=== PATIENT | male | born 1950 | race Caucasian/White ===

== ENCOUNTER 2019-08-06 06:51 | Outpatient (CLI) | payer MEDICARE, SELFPAY ==
[2019-08-06 17:06] LABS: SARS-CoV-2 RNA PCR Negative
== END 2019-08-06 06:52 | disposition home or self-care (01) ==
LOC: ANHCOVIDDT 06:53
PROVIDERS: PCP Internal Medicine; Visit Provider Internal Medicine Gastroenterology
DX: Z20.828 Contact with and (suspected) exposure to other viral communicable diseases (principal)
CPT/HCPCS: 87635; C9803; U0003

== ENCOUNTER 2019-08-09 01:34 | Day surgery (SDC) | payer MEDICARE, SELFPAY ==
[2019-08-03 14:07] VITALS: BMI 42.4
[2019-08-09 08:06] VITALS: BP 132/73; PULSE 59; RESP 18; TEMP 36.2; O2SAT 97
--- NOTE | 2019-08-09 08:12 | WPDANESEPPF ---
Anes - Initial Pre Proc Eval Procedure: Operation Date: 08/09/19 09:00 Proposed Procedures p Screening Colonoscopy - Heron Barber MD Date/Time: 08/09/19 08:12 Surgeon: Heron Barber MD Pre Op Diagnosis: Neoplasm Screening Patient Data Age: 69 Gender: M Height: 5 ft 11 in Weight: 135.9 kg Last Vital Signs Temp 36.2 C L 08/09/19 08:06 Pulse 59 L 08/09/19 08:06 Resp 18 08/09/19 08:06 BP 132/73 08/09/19 08:06 Pulse Ox 97 08/09/19 08:06 Allergies Allergy/AdvReac Type Severity Reaction Status Date / Time naproxen Allergy Unknown Gastrointestinal Verified 08/03/19 13:34 Upset NSAIDS (Non-Steroidal Allergy Unknown Gastric Verified 08/03/19 13:34 Anti-Inflamma bleed Home Medications Medication Instructions Recorded Confirmed Type buspirone 10 mg tablet 10 mg PO TID #270 tablet 04/21/19 08/03/19 Rx hydrocodone 7.5 mg-acetaminophen 1 tablet PO TID PRN tablet 04/21/19 08/03/19 History 325 mg tablet tamsulosin 0.4 mg capsule 0.4 mg PO DAILY 04/21/19 08/03/19 History trazodone 50 mg tablet See Rx Instructions PO .COMPLEX 07/09/19 08/03/19 Rx #180 tablet bupropion HCl 150 mg 24 hr tablet, 150 mg PO BID #180 tablet 07/26/19 08/03/19 Rx extended release lisinopril 20 1 tablet PO DAILY #90 tablet 07/26/19 08/03/19 Rx mg-hydrochlorothiazide 12.5 mg tablet Patient hx anesthesia problems: none Family hx anesthesia problems: none PMFSH Past Medical History Medical History Cholecystectomy planned Surgical History Surgical History H/O hernia repair Family History Family History Father Cerebrovascular accident Sibling Family history of diabetes mellitus in first degree relative Mother Family history of coronary artery disease Acute myocardial infarction Cerebrovascular accident Other Diabetes mellitus Family history of malignant neoplasm Hypertension Social History Social History Smoking status: Never smoker Alcohol intake: never Gender identity (if verbalized by the patient): Male Anes - Eval Final PreProcedure Day of Procedure 08/09/19 08:12 Patient weight: morbidly obese Heart: regular rate and rhythm Lungs: clear to auscultation Airway: Mallampati scale class II, special considerations and other (difficult intubation) Neurological: alert and oriented Last oral intake: >/= 8 hours ASA classification: III Emergent: no Anesthetic plan: proceed Anesthesia type and monitoring: general GIVS and standard monitoring Informed Consent: The patient's anesthetic plan and its attendant risks and benefits were discussed with the patient/family/POA. Questions were solicited and answers provided to the satisfaction of the patient/family/POA.
[2019-08-09] MEDS: LACTATED RINGERS 1,000 ML 150 ML IV CONT (08:21)
--- NOTE | 2019-08-09 08:37 | WPDGICN ---
Assessment and Plan Assessment and plan (1) Encounter for screening for colorectal malignant neoplasm: Code(s): Z12.11 - Encounter for screening for malignant neoplasm of colon; Z12.12 - Encounter for screening for malignant neoplasm of rectum Status: Acute Assessment and Plan: Screening colonoscopy will be performed is been 12 years since last exam. High-fiber diet is advised. (2) Morbid obesity: Code(s): E66.01 - Morbid (severe) obesity due to excess calories Status: Acute GI Consult Note Consult date/time: 08/09/19 08:37 HPI: Armando Diaz is a 69 year old male Seen in evaluation at the request of Dr. Randal Piper, . Patient presents for screening colonoscopy. His current weight appetite bowel movements are normal. He denies abdominal pain. His bowel habits are normal. Last colonoscopy was 12 years ago. Family history is noncontributory. Review of Systems Review of Systems: All systems reviewed & are unremarkable except as noted in HPI and below PMFSH Past Medical History Medical History Cholecystectomy planned Surgical History Surgical History H/O hernia repair Family History Family History Father Cerebrovascular accident Sibling Family history of diabetes mellitus in first degree relative Mother Family history of coronary artery disease Acute myocardial infarction Cerebrovascular accident Other Diabetes mellitus Family history of malignant neoplasm Hypertension Social History Social History Smoking status: Never smoker Alcohol intake: never Gender identity (if verbalized by the patient): Male Meds Home Medications and Allergies Home Medications Medication Instructions Recorded Confirmed Type buspirone 10 mg tablet 10 mg PO TID #270 tablet 04/21/19 08/03/19 Rx hydrocodone 7.5 mg-acetaminophen 1 tablet PO TID PRN tablet 04/21/19 08/03/19 History 325 mg tablet tamsulosin 0.4 mg capsule 0.4 mg PO DAILY 04/21/19 08/03/19 History trazodone 50 mg tablet See Rx Instructions PO .COMPLEX 07/09/19 08/03/19 Rx #180 tablet bupropion HCl 150 mg 24 hr tablet, 150 mg PO BID #180 tablet 07/26/19 08/03/19 Rx extended release lisinopril 20 1 tablet PO DAILY #90 tablet 07/26/19 08/03/19 Rx mg-hydrochlorothiazide 12.5 mg tablet Allergies Allergy/AdvReac Type Severity Reaction Status Date / Time naproxen Allergy Unknown Gastrointestinal Verified 08/03/19 13:34 Upset NSAIDS (Non-Steroidal Allergy Unknown Gastric Verified 08/03/19 13:34 Anti-Inflamma bleed Vital Signs Vital Signs - 24 hr 08/09/19 08:06 Temperature 36.2 C L Pulse Rate 59 L Respiratory Rate 18 Blood Pressure 132/73 Pulse Oximetry 97 Exam Narrative: Exam Narrative: Physical exam reveals patient to be alert. Vital signs are stable. HEENT exam unremarkable. Lungs are clear to auscultation and percussion. Heart is without murmur or extra sounds. Abdominal exam bowel sounds are present soft nontender with no organomegaly. Patient is somewhat obese. Digital external rectal exam normal.
[2019-08-09 09:05] VITALS: BP 114/74; PULSE 64; RESP 20; O2SAT 100
[2019-08-09 09:15] VITALS: BP 118/79; PULSE 62; RESP 20; O2SAT 97
[2019-08-09 09:25] VITALS: BP 118/71; PULSE 53; RESP 18; O2SAT 97
== END 2019-08-09 10:00 | disposition home or self-care (01) ==
PROVIDERS: PCP Internal Medicine; Visit Provider Internal Medicine Gastroenterology
PROC: 0DJD8ZZ Inspection of Lower Intestinal Tract, Via Natural or Artificial Opening Endoscopic (ICD-10-PCS; CPT 45378; principal; 2019-08-09 09:00)
DX: Z12.11 Encounter for screening for malignant neoplasm of colon (principal); E66.01 Morbid (severe) obesity due to excess calories; D12.4 Benign neoplasm of descending colon; D12.5 Benign neoplasm of sigmoid colon; Z68.41 Body mass index [BMI] 40.0-44.9, adult
CPT/HCPCS: 45385; 88305; J2001; J2704; J7120

== ENCOUNTER → 2022-04-12 11:26 | Outpatient (CLI) | payer MEDICARE, SELFPAY ==
--- NOTE | ~2022-04-12 | XR_ITS ---
Supine and upright views of the abdomen Clinical history: Renal stone COMPARISON: 02/10/2019 Findings: Bowel gas pattern is nonspecific. No evidence for obstruction or free air. Bilateral renal stones are noted, essentially stable from prior exam. Osseous structures are intact. Impression: Stable bilateral renal stones. Reviewed, dictated and finalized at [facility]. [facility] Impression: Stable bilateral renal stones.
== END ==
PROVIDERS: PCP Internal Medicine; Visit Provider Urology
DX: N20.0 Calculus of kidney (principal)
CPT/HCPCS: 74018

== ENCOUNTER 2022-08-26 07:59 | Outpatient (CLI) | payer MEDICARE, SELFPAY ==
--- NOTE | ~2022-08-26 | US_ITS ---
. EXAMINATION: US art doppler w press LE BI DATE: 08/26/2022 09:53 INDICATION: Peripheral vascular disease, unspecified. TECHNIQUE: Segmental pressures and plethysmographic and Doppler waveforms of the brachial and lower e xtremity arteries were obtained. COMPARISON: None. FINDINGS: Right and left brachial artery pressures of 144 mm Hg and 131 mm Hg, respectively, are concordant (no rmal difference <= 30 mmHg). The right thigh, below knee, and ankle pressures could not be measured due to inability to cuff-inclu de the arteries. The right ankle-brachial index (MINOO) could not be measured (normal >= 0.9-1.0). The right great toe-brachial index (TBI) is 0.51 (normal >= 0.65). Arterial Doppler waveforms are biphas ic in common femoral artery, monophasic in superficial femoral artery, biphasic in popliteal artery a nd posterior tibial artery, and monophasic in dorsalis pedis. The left thigh and below-knee pressures could not be measured due to inability to cuff occlude the ar teries. The left MINOO is 1.29. The left TBI is 0.64. Arterial Doppler waveforms are triphasic in commo n femoral artery and biphasic from superficial femoral artery to the ankle. IMPRESSION: 1. Decreased bilateral TBIs, nondiagnostic right MINOO, and normal left MINOO, consistent with arterial o cclusive disease. Note that MINOO may be overestimated if arteries are calcified. Reviewed, dictated and finalized at location A. IMPRESSION: 1. Decreased bilateral TBIs, nondiagnostic right MINOO, and normal left MINOO, cons istent with arterial occlusive disease. Note that MINOO may be overestimated if a rteries are calcified.
== END 2022-08-26 08:00 | disposition home or self-care (01) ==
PROVIDERS: PCP Family Medicine; Visit Provider Family Medicine
DX: I73.9 Peripheral vascular disease, unspecified (principal)
CPT/HCPCS: 93923

== ENCOUNTER 2022-10-01 07:57 | Outpatient (CLI) | payer MEDICARE, SELFPAY ==
--- NOTE | 2022-10-01 11:30 | NEURO_ITS ---
Impression: # Complains of numbness of feet and gait dysfunction. 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 # Needle/EMG revealed decreased motor unit potentials but no fibs or myotonia. Nerve Conduction Studies Anti Sensory Summary Table Stim Site NR Peak (ms) P-T Amp (?V) Site1 Site2 Delta-P (ms) Dist (cm) Yasri (m/s) Left Sup Fibular Anti Sensory (Ant Lat Mall) NO RESPONSE 14 cm NR 14 cm Ant Lat Mall 16.0 Right Sup Fibular Anti Sensory (Ant Lat Mall) NO RESPONSE 14 cm NR 14 cm Ant Lat Mall 16.0 1.4 37.5 Left Sural Anti Sensory (Lat Mall) NO RESPONSE Calf NR Calf Lat Mall 16.0 Right Sural Anti Sensory (Lat Mall) NO RESPONSE Calf NR Calf Lat Mall 16.0 Motor Summary Table Stim Site NR Onset (ms) O-P Amp (mV) Site1 Site2 Delta-0 (ms) Dist (cm) Yasir (m/s) Left Peroneal Motor (Vastus Med) Ankle 4.6 0.8 Popit Ankle 8.7 39.0 45 Popit 13.3 0.3 Right Peroneal Motor (Vastus Med) NO RESPONSE Ankle NR Popit NR Left Tibial Motor (Abd Villalta Brev) NO RESPONSE Ankle NR Knee Ankle 40.0 Knee NR Right Tibial Motor (Abd Villalta Brev) NO RESPONSE Ankle NR Knee NR F Wave Studies NR F-Lat (ms) L-R F-Lat (ms) Left Peroneal (Mrkrs) (EDB) 53.45 3.16 Right Peroneal (Mrkrs) (EDB) 56.61 3.16 Left Tibial (Mrkrs) (Abd Hallucis) DISPERSED RESPONSE NR Right Tibial (Mrkrs) (Abd Hallucis) NO RESPONSE NR EMG Side Muscle Nerve Root Ins Act Fibs Amp Dur Recrt Comment Right AntTibialis Dp Br Fibular L4-5 Nml Nml Nml Nml Reduced Right Gastroc Tibial S1-2 Nml Nml Nml Nml Reduced Right Fibularis Long Sup Br Fibular L5-S1 Nml Nml Nml Nml Reduced Right Flex Dig Long Tibial L5-S2 Nml Nml Nml Nml Reduced Right Ext Dig Brev Dp Br Fibular L5, S1 Nml Nml Nml Nml Reduced Left AntTibialis Dp Br Fibular L4-5 Nml Nml Nml Nml Reduced Left Gastroc Tibial S1-2 Nml Nml Nml Nml Reduced Left Fibularis Long Sup Br Fibular L5-S1 Nml Nml Nml Nml Reduced Left Flex Dig Long Tibial L5-S2 Nml Nml Nml Nml Reduced Left Ext Dig Brev Dp Br Fibular L5, S1 Nml Nml Nml Nml Reduced MTDD
== END 2022-10-01 07:58 | disposition home or self-care (01) ==
LOC: ANHNEURO 07:58
PROVIDERS: PCP Family Medicine; Visit Provider Family Medicine
DX: G62.9 Polyneuropathy, unspecified (principal)
CPT/HCPCS: 95886; 95910

== ENCOUNTER 2023-07-14 09:05 | Outpatient (CLI) | payer MEDICARE, SELFPAY ==
--- NOTE | ~2023-07-14 | XR_ITS ---
EXAMINATION: XR ankle RT min 3V DATE: 07/14/2023 09:20 INDICATION: Right ankle pain. TECHNIQUE: 4 views of right ankle were obtained. COMPARISON: None. FINDINGS: Pes planus is noted. No fracture. There is mild midfoot osteoarthritis. There are enthesoph ytes at the posterior and plantar aspects of calcaneal tuberosity. Vascular calcifications are noted. There is subcutaneous edema of the lower leg and ankle. IMPRESSION: 1. Mild midfoot osteoarthritis. 2. Pes planus. Reviewed, dictated and finalized at location E.
== END 2023-07-14 09:06 ==
PROVIDERS: PCP Family Medicine; Visit Provider Family Medicine
DX: M19.071 Primary osteoarthritis, right ankle and foot (principal)
CPT/HCPCS: 73610

== ENCOUNTER 2023-09-01 13:06 | Outpatient (CLI) | payer MEDICARE, SELFPAY ==
--- NOTE | ~2023-09-01 | XR_ITS ---
Supine and upright views of the abdomen Clinical history: Bladder stone COMPARISON: 04/12/2022 Findings: Bowel gas pattern is nonspecific. No evidence for obstruction or free air. Pelvic calcifica tions suggest pelvic phleboliths, and are similar in appearance to prior exam, or bladder stone is di fficult to completely exclude. Evidence of prior herniorrhaphy, unchanged. There are probable bilater al renal stones, similar to prior exam. Osseous structures are intact. Impression: Bilateral renal stones, probably similar to prior exam. Probable calcified pelvic phleboliths, though bladder stone is difficult to completely excluded. Reviewed, dictated and finalized at [facility]. Impression: Bilateral renal stones, probably similar to prior exam. Probable calcified pelvic phleboliths, though bladder stone is difficult to com pletely excluded.
== END 2023-09-01 13:07 | disposition home or self-care (01) ==
PROVIDERS: PCP Family Medicine; Visit Provider Urology
DX: N21.0 Calculus in bladder (principal); N20.0 Calculus of kidney
CPT/HCPCS: 74018

== ENCOUNTER 2023-09-29 09:09 | Outpatient (CLI) | payer MEDICARE, SELFPAY ==
--- NOTE | 2023-09-29 09:28 | ECG_ITS ---
Test Date: 2023-09-29 09:36:16 Measurements Intervals [place] Rate: 38 P: -78 [place]: 265 QRS: -33 QRSD: 173 T: -14 QT: 445 QTc: 357 Interpretive Statements SLOW SINUS BRADYCARDIA WITH FIRST DEGREE AV BLOCK ATRIAL PREMATURE COMPLEX LEFT AXIS DEVIATION RIGHT BUNDLE BRANCH BLOCK ABNORMAL ECG No previous ECG available for comparison Electronically Signed On 09-29-2023 10:08:38 CDT by Long Razo D.O.
== END 2023-09-29 09:10 | disposition home or self-care (01) ==
LOC: ANHSURGERY 09:14
PROVIDERS: PCP Family Medicine; Visit Provider Urology
DX: I10 Essential (primary) hypertension (principal); Z01.818 Encounter for other preprocedural examination; I44.0 Atrioventricular block, first degree
CPT/HCPCS: 93005

== ENCOUNTER 2023-10-02 02:21 | Day surgery (SDC) | payer MEDICARE, SELFPAY ==
[2023-09-26 14:46] VITALS: BMI 44.7
--- NOTE | 2023-09-26 14:47 | PC.NURSE ---
Report to the Outpatient Waiting Room, entrance under the green pavilion located off [facility], at time _0630_ on date _[id number]_. Planned Procedure Time: _0830_. Time changes happen often and if your time is changed the preop area will call you the afternoon before. - You and your visitor will be asked to self-screen and do not enter if you have any COVID symptoms. - A mask is optional within the hospital at this time. Patients may have clear liquids (water, carbonated beverages, clear teas, apple juice) until 3 hours prior to surgery with a maximum of 20 ounces. - No food from midnight until time of surgery Take the following medications with a SIP of water the morning of surgery: ____Buspirone and Escitalopram DO NOT STOP ANY OF YOUR OTHER PRESCRIPTION MEDICATIONS PRIOR TO SURGERY ?EXCEPT THE FOLLOWING Medications to discontinue per physician ___Multivitamin Wan says he stopped Eliquis 09-25-2023 per instructions of heart dr. Date to take last [id number] Please no make-up, nail lao, hairspray, perfume, deodorant, or body powder the day of surgery. No jewelry (including any body piercings) or valuables the day of surgery, leave them at home. Please take a shower or bath the night before, or the morning of, surgery with an antibacterial soap. Wear comfortable, loose fitting clothing. - Jewelry must be removed prior to entering the operating room. Rings and piercings that are not removed may be cut off. - The hospital will not accept responsibility for valuables. - Please leave all valuables, including medications, at home the day of surgery. If you are going home after surgery, a licensed team cdl driver must drive you home. - NO public transportation without another adult if you receive anesthesia. - We recommend that an adult stay with you for 24 hours following discharge. - We also recommend that you do not drive, make important decision, drink alcoholic beverages, or take any drugs that were not prescribed by your health care provider for at least 24 hours after your discharge time. Follow any additional instructions given to you from your surgeon. If you or anyone in your household have experienced Covid symptoms in the past week, please notify your surgeon or the nurse liaison at the phone number below for possible testing. Telephone instructions given to __Wan and Hallie__and asked if any additional questions and then verbalized understanding. Patient advised to call surgeon office or pre surgery nurse liaison [phone] if any additional questions.
--- NOTE | 2023-10-01 15:23 | WPDANESEPPF ---
Anes - Initial Pre Proc Eval Procedure: Operation Date: 10/02/23 08:30 Proposed Procedures p Cystoscopy, Laser Lithotripsy of Bladder Stones - Nehemias Hebert MD Date/Time: 10/01/23 15:23 Surgeon: Nehemias Hebert MD Pre Op Diagnosis: bladder stones Patient Data Age: 73 Gender: M Height: 1.8 m Weight: 145.5 kg Allergies Allergy/AdvReac Type Severity Reaction Status Date / Time naproxen Allergy Unknown Gastrointestinal Verified 09/26/23 14:37 Upset NSAIDS (Non-Steroidal Allergy Unknown Gastric Verified 09/26/23 14:37 Anti-Inflamma bleed Home Medications Medication Instructions Recorded Confirmed Type hydrocodone 7.5 mg-acetaminophen 1 tablet PO TID PRN Pain 04/21/19 09/26/23 History 325 mg tablet apixaban 5 mg tablet (Eliquis) 5 mg PO BID 01/27/20 09/26/23 History finasteride 5 mg tablet 5 mg PO DAILY 08/21/22 09/26/23 History metformin 500 mg tablet 500 mg PO DAILY #90 tabs 01/15/23 09/26/23 Rx trazodone 50 mg tablet See Rx Instructions .Route 04/01/23 09/26/23 Rx .COMPLEX #270 tabs syringe with needle 3 mL 23 gauge #14 ea 06/26/23 09/26/23 Rx x 1 1/2 ([employer] Luer Lock Syringe with needle) lisinopril 20 See Rx Instructions .Route 07/14/23 09/26/23 Rx mg-hydrochlorothiazide 12.5 mg .COMPLEX #90 tabs tablet ferrous sulfate 325 mg (65 mg 325 mg PO DAILY #100 tabs 07/15/23 09/26/23 Rx iron) tablet testosterone cypionate 200 mg/mL 200 mg IM .every 2 weeks #10 mL 08/26/23 09/26/23 Rx intramuscular oil (Depo-Testosterone) furosemide 40 mg tablet 40 mg PO QAM #30 tabs 08/29/23 09/26/23 Rx potassium chloride 20 mEq 20 meq PO DAILY #30 tabs 08/29/23 09/26/23 Rx tablet,extended release buspirone 10 mg tablet See Rx Instructions .Route 09/17/23 09/26/23 Rx .COMPLEX #270 tabs pregabalin 75 mg capsule (Lyrica) 75 mg PO BID PRN neuropathy #60 09/17/23 09/26/23 Rx caps multivitamin 1 tablet PO DAILY 09/26/23 09/26/23 History escitalopram oxalate 20 mg tablet See Rx Instructions .Route 09/29/23 Rx .COMPLEX #90 tabs Patient hx anesthesia problems: none Family hx anesthesia problems: none Results Review: All pre-operative results and documents have been reviewed as part of the pre-operative evaluation. [facility] Past Medical History Medical History (Updated 10/01/23 @ 15:24 by Lex Weir, ) Anxiety Atrial fibrillation Cholecystectomy planned Depression Essential (primary) hypertension Morbid obesity AMINA (obstructive sleep apnea) Surgical History Surgical History H/O hernia repair Hx of gastric bypass Family History Family History Father Cerebrovascular accident Sibling Family history of diabetes mellitus in first degree relative Mother Family history of coronary artery disease Acute myocardial infarction Cerebrovascular accident Other Diabetes mellitus Family history of malignant neoplasm Hypertension Social History Social History Social History: 01/29/22 - Reports never smoker. Occasional iced slushee cocktail but hasn't had alcohol in 2 to 3 months he states. Denies marijuana or illicit substance use. Smoking status: Never smoker Second hand tobacco smoke exposure: Yes Alcohol intake: never Substance use: never Substance use type: does not use Lack of Transportation: No Lack of Food: Never True Current Housing: I Have Housing Concerned About Future Housing: No Difficulty Paying Gas/Electric Bills: No Difficulty Paying for Meds: No Currently Unemployed: No Education: High School Diploma/GED Difficulty w/ Childcare or Family Care: No Living arrangements: with family Gender identity (if verbalized by the patient): Male Spiritual care concerns: No Anes - Eval Final PreProcedure Day of Procedure 10/01/23 15:23
[2023-10-02] VITALS (7 sets, daily range): BP systolic 107–131; BP diastolic 54–74; PULSE 51–78; RESP 14–20; TEMP 36.1–36.4; O2SAT 95–98
--- NOTE | 2023-10-02 06:30 | WPDHPUPDATE1 ---
History and Physical Update Update Date/Time: 10/02/23 06:30 History and Physical has been reviewed, including an updated exam of the patient. There are NO changes in the patient's condition. Risks, benefits, and alternatives have been discussed and questions answered. Patient agrees to proceed with procedure.
[2023-10-02] MEDS: LACTATED RINGERS 1,000 ML 30 ML IV CONT (07:30)
[2023-10-02 07:32] LABS: Glucose Point of Care 87 mg/dl (65-105)
[2023-10-02] MEDS: ceFAZolin 3 GM/D5W 100 ML 100 ML IVPB (08:24)
[2023-10-02] MEDS: LIDOCAINE HCL 2% GEL UROJET 10 ML PKG MUCOUS MEM (08:35)
--- NOTE | 2023-10-02 09:14 | P.OP_ITS ---
Procedure Note - Detailed Date of Procedure 10/02/23 Pre-op Diagnosis Bladder stones Post-op Diagnosis Same Procedure Performed Cystoscopy, laser ablation and extraction bladder stones Surgeon Nehemias Hebert MD Anesthesia General Description of Procedure The patient is brought to the operative suite where he was prepped and draped in a routine sterile fashion while in the dorsal lithotomy position after the uneventful induction of a general anesthetic. A 21F rigid cystoscope was placed in his bladder. He has no urethral strictures but moderate prostatic hyperplasia. He has a small median lobe enlargement with an estimated prostatic urethral length of approximately 2.5cm. He has two bladder calculi - one measuring 2.5 cm and the other 1 cm. Using a 1000 micron holmium laser fiber laser these stones are fractured into smaller particles. The particles are evacuated using an [employer] evacuator.. The was minimal hematuria so I opted no to place a urethral catheter. The patient was taken to the recovery room having tolerated the procedure well. Drains No Packing No Pathology None sent Complications No immediate complications
[2023-10-02 09:23] LABS: Glucose Point of Care 91 mg/dl (65-105)
== END 2023-10-02 10:43 | disposition home or self-care (01) ==
PROVIDERS: PCP Family Medicine; Visit Provider Urology
PROC: 0TCB8ZZ Extirpation of Matter from Bladder, Via Natural or Artificial Opening Endoscopic (ICD-10-PCS; CPT 52352; principal; 2023-10-02 08:30)
DX: N21.0 Calculus in bladder (principal); I48.91 Unspecified atrial fibrillation; I10 Essential (primary) hypertension; G47.33 Obstructive sleep apnea (adult) (pediatric); F41.9 Anxiety disorder, unspecified; F32.A Depression, unspecified; E66.01 Morbid (severe) obesity due to excess calories; Z68.42 Body mass index [BMI] 45.0-49.9, adult; Z79.84 Long term (current) use of oral hypoglycemic drugs; Z79.890 Hormone replacement therapy; Z98.84 Bariatric surgery status
CPT/HCPCS: 52317; 82365; 82948; 88300; J0690; J1100; J2405; J2704; J3010; J7120

== ENCOUNTER 2023-11-07 12:55 | Inpatient (IN) | payer MEDICARE, SELFPAY ==
[2023-11-07] VITALS (43 sets, daily range): BP systolic 66–118; BP diastolic 42–70; PULSE 57–96; RESP 18–37; TEMP 36.6–37.2; O2SAT 90–96; BMI 45.6
--- NOTE | ~2023-11-07 | CT_ITS ---
EXAMINATION: CT chest abdomen pelvis wo con DATE: 11/07/2023 17:02 INDICATION: Sepsis. Hypotension. TECHNIQUE: Computed tomography (CT) of the chest, abdomen, and pelvis was performed without intraveno us contrast. The mA was adjusted according to patient size. Iterative reconstruction technique was em ployed. The dose-length product was 2096.25 mGy-cm. COMPARISON: CT abdomen pelvis dated 08/11/2018 FINDINGS: CHEST CT: Right internal jugular central venous catheter with distal tip at the high right atrium. Chronic elev ation the right hemidiaphragm. Partially expiratory phase of imaging with volume loss in both lungs a s well as bronchovascular crowding with motion artifact. Interval increase in thickness of the linear band of discoid atelectasis/scarring in the right lower lobe. Additional mild discoid atelectasis at the right apex. No pleural effusion or definite pulmonary edema or pneumonia. Borderline heart size. Atherosclerotic coronary artery calcification. No pericardial effusion. Thoracic aorta is normal in caliber. No pathologically enlarged thoracic lymphadenopathy. There are bridging osteophytes througho ut the thoracic spine consistent with diffuse idiopathic skeletal hyperostosis (DISH). ABDOMEN/PELVIS CT: Cholecystectomy clips the gallbladder fossa. Liver, spleen, pancreas and bilateral adrenal glands are normal. Again seen are multiple bilateral nonobstructing renal stones with at least 5 stones in the right kidney measuring up to 11 mm and 2 stones in the right kidney measuring up to 5 mm. No ureteral stones or hydronephrosis. Cristina catheter in the decompressed bladder. There is bladder wall thickeni ng along some mild stranding in the immediately adjacent fat which could be seen with cystitis. There is some fluid scattered throughout the colon consistent with diarrhea. Mild diverticulosis along the descending and sigmoid colon without adjacent inflammatory stranding to suggest diverticulitis. Smal l bowel anastomotic suture line in the anterior upper abdomen. No bowel obstruction. Normal appendix. Postoperative change of prior umbilical hernia mesh repair. No free intraperitoneal gas or fluid. No pathologically enlarged abdominal or pelvic lymphadenopathy. There are small bilateral fat-containin g inguinal hernias. Mild lumbar spondylosis with a few additional bridging osteophytes in the lumbar spine. IMPRESSION: 1. Chronic elevation the right hemidiaphragm with respiratory motion at scattered mild atelectasis in the lungs. No acute cardiopulmonary disease. 2. Bilateral nonobstructing nephrolithiasis. 3. Cristina catheter in the bladder which is decompressed with wall thickening and stranding in the surr ounding fat which raises concern for cystitis. Correlate with urinalysis. 4. Small bilateral fat-containing inguinal hernias and change of prior umbilical hernia mesh repair. Reviewed, dictated and finalized at location A. IMPRESSION: 1. Chronic elevation the right hemidiaphragm with respiratory motion at scatter ed mild atelectasis in the lungs. No acute cardiopulmonary disease. 2. Bilateral nonobstructing nephrolithiasis. 3. Cristina catheter in the bladder which is decompressed with wall thickening and stranding in the surrounding fat which raises concern for cystitis. Correlate with urinalysis. 4. Small bilateral fat-containing inguinal hernias and change of prior umbilica l hernia mesh repair.
--- NOTE | ~2023-11-07 | XR_ITS ---
XR chest 1V portable Ordering provider: Brannon Santizo MD History: 73 years Male with . Hypotension . Comparison: October 23, 2010 FINDINGS: MEDIASTINUM: The cardiac silhouette is moderately enlarged. Congestive gay. LUNGS: No pneumothorax. Opacification in the left lung base which may indicate atelectasis versus pne umonia. Minimal effusion is not excluded. Prominent markings in the right lung base. OTHER: No free air under the diaphragm. IMPRESSION: Left basal atelectasis versus pneumonia. Congestive gay with bilateral minimal interstitial changes may indicate cardiac decompensation. Clinical correlation advised. Reviewed, dictated and finalized at location A.
--- NOTE | ~2023-11-07 | XR_ITS ---
EXAMINATION: XR chest port-a-cath/central DATE: 11/07/2023 16:12 INDICATION: Central line placement TECHNIQUE: frontal view of the chest was obtained. COMPARISON: Chest radiograph dated 11/07/2023 FINDINGS: Interval placement of a dual-lumen right internal jugular central venous catheter with distal tip at the high right atrium. Decreased right lung volume with chronic elevation of the right hemidiaphragm. Opacities at the bilateral lower lung zones and favor atelectasis over pneumonia. No pleural effusio n or pneumothorax. Heart size is within normal limits for AP technique. Visualized bones and soft tis sues are unremarkable. IMPRESSION: 1. Chronic elevation of the right hemidiaphragm with opacities at the bilateral lung bases and favor atelectasis over pneumonia. Reviewed, dictated and finalized at location A.
--- NOTE | 2023-11-07 13:16 | ECG_ITS ---
Test Date: 2023-11-07 13:23:11 Measurements Intervals [place] Rate: 97 P: 183 [place]: 208 QRS: -28 QRSD: 169 T: -8 QT: 341 QTc: 434 Interpretive Statements BASELINE ARTIFACT, DIFFICULT INTERPRETATION POSSIBLE ECTOPIC ATRIAL RHYTHM BORDERLINE LEFT AXIS DEVIATION [QRS AXIS < -20] RIGHT BUNDLE BRANCH BLOCK [120+ ms QRS DURATION, UPRIGHT V1, 40+ ms S IN I/aVL/V4/V5/V6] Compared to ECG 09/29/2023 09:36:16 PATIENT IS NO LONGER BRADYCARDIC POOR QUALITY OF THE BASELINE PRECLUDES ACCURATE ATRIAL RHYTHM TO TERMINATE Electronically Signed On 11-07-2023 15:14:05 CDT by Nicanor Watt M.D.
--- NOTE | 2023-11-07 13:28 | ECG_ITS ---
Test Date: 2023-11-07 14:20:21 Measurements Intervals [place] Rate: 88 P: -75 [place]: 276 QRS: -19 QRSD: 97 T: -11 QT: 387 QTc: 469 Interpretive Statements SUSPECTSINUS RHYTHM WITH FIRST DEGREE AV BLOCK LOW QRS VOLTAGE IN PRECORDIAL LEADS [QRS DEFLECTION < 1.0 mV IN CHEST LEADS] PATTERN CONSISTENT WITH PULMONARY DISEASE RIGHT BUNDLE BRANCH BLOCK LEFTWARD AXIS ABNORMAL ECG Compared to ECG 11/07/2023 13:23:11 NO SIGNIFICANT CHANGE Electronically Signed On 11-07-2023 15:18:51 CDT by Nicanor Watt M.D.
[2023-11-07 13:34] LABS: Hematocrit 38.7 % (42.0-52.0); Hemoglobin 12.5 g/dL (14.0-18.0); Mean Corpuscular HGB Conc 32.3 g/dl (32-36); Mean Corpuscular Hemoglobin 28.7 pg (26-34); Mean Platelet Volume 10.1 fl (7.4-10.4); Platelet Count Result 172 k/mm3 (150-375); Red Blood Count 4.35 M/mm3 (4.6-6.20); Red Cell Distribution Width 17.2 % (11.5-14.5)
--- NOTE | 2023-11-07 13:34 | PC.NURSE ---
Patient's family states patient is more pale than usual. Patient states he does take blood thinner and has been having hematuria.
[2023-11-07] MEDS: SODIUM CHLORIDE 0.9% IV 3,000 ML 999 ML IV CONT (13:46)
[2023-11-07 13:50] LABS: Albumin Level 3.6 g/dL (3.5-5.1); Alkaline Phosphatase 89 U/L (38-126); Anion Gap 14 mmol/L (4-12); Aspartate Amino Transferase 40 U/L (17-59); Bilirubin,Total 1.2 mg/dL (0.2-1.3); Blood Urea Nitrogen 34 mg/dL (9-20); Calcium 8.3 mg/dL (8.4-10.2); Carbon Dioxide 24 mmol/L (22-30); Chloride 98 mmol/L (98-107); Estimated CRCL calculation 33 ml/min; Estimated Glomerular Filt Rate 24; Glucose 106 mg/dL (65-110); Potassium 3.1 mmol/L (3.4-5.0); Sodium 136 mmol/L (137-145)
[2023-11-07 13:53] LABS: Alanine Aminotransferase 26 U/L (6-50)
[2023-11-07 13:55] LABS: Band Neutrophils Percent 11 % (0-6); Lymphocytes Absolute Manual 0.56 K/mm3 (1.1-4.5); Monocytes Absolute Manual 0.42 K/mm3 (0.1-0.90); Monocytes Percent Manual 3 % (3-9); Neutrophils Absolute Manual 13.02 K/mm3 (1.3-6.7); Neutrophils Percent Manual 82 % (46-73); Total Cells Counted 100
[2023-11-07 13:56] LABS: Platelet Estimate Adequate (Adequate); Schistocytes None Seen
--- NOTE | 2023-11-07 14:06 | ED.GENADULT ---
HPI - General Adult General Chief complaint: Syncope Stated complaint: near syncopal episode while attempting a catheter Time Seen by Provider: 11/07/23 13:23 History of Present Illness HPI narrative: This is a 73-year-old male presenting ED with chief complaint of near-syncope. Patient was going to the urologist's office because he was having hematuria. At the urologist's office he was found to be hypotensive in ill-appearing and was sent to the ED for further workup. The patient says that he has been having shortness of breath with a dry cough the last several days. He has also felt very cold. He has noted blood in his urine. He is denying fevers, chest pain, abdominal pain. Related Data Home Medications Medication Instructions Recorded Confirmed hydrocodone 7.5 mg-acetaminophen 1 tablet PO TID PRN Pain 04/21/19 09/26/23 325 mg tablet apixaban 5 mg tablet (Eliquis) 5 mg PO BID 01/27/20 10/02/23 finasteride 5 mg tablet 5 mg PO DAILY 08/21/22 09/26/23 multivitamin 1 tablet PO DAILY 09/26/23 09/26/23 Allergies Allergy/AdvReac Type Severity Reaction Status Date / Time naproxen Allergy Unknown Gastrointestinal Verified 10/02/23 08:01 Upset NSAIDS (Non-Steroidal Allergy Unknown Gastric Verified 10/02/23 08:01 Anti-Inflamma bleed PMFSH Past Medical History Medical History Anxiety Atrial fibrillation Cholecystectomy planned Depression Essential (primary) hypertension Morbid obesity AMINA (obstructive sleep apnea) Surgical History Surgical History H/O hernia repair Hx of gastric bypass Family History Family History Father Cerebrovascular accident Sibling Family history of diabetes mellitus in first degree relative Mother Family history of coronary artery disease Acute myocardial infarction Cerebrovascular accident Other Diabetes mellitus Family history of malignant neoplasm Hypertension Social History Social History Social History: 01/29/22 - Reports never smoker. Occasional iced slushee cocktail but hasn't had alcohol in 2 to 3 months he states. Denies marijuana or illicit substance use. Smoking status: Never smoker Second hand tobacco smoke exposure: Yes Alcohol intake: never Substance use: never Substance use type: does not use Lack of Transportation: No Lack of Food: Never True Current Housing: I Have Housing Concerned About Future Housing: No Difficulty Paying Gas/Electric Bills: No Difficulty Paying for Meds: No Currently Unemployed: No Education: High School Diploma/GED Difficulty w/ Childcare or Family Care: No Living arrangements: with family Gender identity (if verbalized by the patient): Male Spiritual care concerns: No Exam Narrative: APPEARANCE: No apparent distress. Head: atraumatic. EYES: EOMI, NOSE: Atraumatic NECK: Trachea midline RESPIRATORY: Decreased lung sounds in the bases CARDIOVASCULAR: RRR, no peripheral edema ABDOMINAL: Non-distended soft nontender MUSCULOSKELETAl: No obvious deformities NEURO: Alert. Moving 4/4 extremities SKIN:: Pale PSYCHIATRIC: Normal affect Course Vital Signs Vital signs: Vital Signs Temperature 97.9 F 11/07/23 13:09 Pulse Rate 93 11/07/23 13:09 Respiratory Rate 20 11/07/23 13:09 Blood Pressure 66/53 L 11/07/23 13:09 Pulse Oximetry 95 11/07/23 13:09 Oxygen Delivery Room Air 11/07/23 13:09 Temperature 97.9 F 11/07/23 13:09 Pulse Rate 88 11/07/23 16:33 Respiratory Rate 21 H 11/07/23 16:16 Blood Pressure 87/42 L 11/07/23 16:33 Pulse Oximetry 95 11/07/23 16:16 Oxygen Delivery Room Air 11/07/23 13:09 Procedures Central Line Placement Right IJ: Central Line Date: 11/07/23 Discussed w/ the patient/family/POA
[2023-11-07 14:10] LABS: Fractional Inspired Oxygen 21 %; HCO3 VBG 23.1 mEq/l (24.0-30.0); PCO2 VBG 49.1 mmHg (42.0-48.0); pH VBG 7.291 (7.300-7.400)
[2023-11-07 14:12] LABS: Device ROOM AIR; PO2 VBG < 27.0 mmHg (35.0-45.0)
[2023-11-07] MEDS: POTASSIUM CHLORIDE INJ 40 MEQ in SODIUM CHLORIDE 0.9% IV 500 ML 130 MEQ IVPB (14:29)
[2023-11-07 14:45] LABS: INR 1.3; Prothrombin Time 17.1 Seconds (11.1-14.7)
[2023-11-07 14:46] LABS: Partial Thromboplastin Time 43.5 Seconds (22.3-36.8)
[2023-11-07 14:47] LABS: Lipase 42 U/L (23-300); Magnesium 1.5 mg/dL (1.6-2.3); Phosphorus 1.5 mg/dL (2.5-4.5)
[2023-11-07 15:00] LABS: Influenza A QL RT-PCR Negative (Negative); Influenza B QL RT-PCR Negative (Negative); RSV RNA, RT-PCR Negative (Negative); SARS-CoV-2 RNA PCR Negative (Negative)
[2023-11-07 15:10] LABS: NT Pro B Type Natriuretic Pept 5420 pg/mL (19.9-100); Troponin I 0.068 ng/mL (0.000-0.034)
[2023-11-07 15:40] LABS: Add Urine Microscopic? YES; Appearance Urine Turbid (Clear); Bacteria Urine 4+ /hpf; Bilirubin Urine Negative (Negative); Blood Urine 3+ (Negative); Color Urine Dark Yellow (Yellow); Glucose Urine UA Negative (Negative); Ketones Urine Trace mg/dL (Negative); Leukocyte Esterase Ur 3+ LEU/UL (Negative); Need Manual Microscopic Reviewed; Nitrate Urine Negative (Negative); Protein Urine 2+ mg/dL (Negative); RBC Urine 51-100 /hpf (0-2); Specific Grav Ur 1.013 (1.001-1.035); Squamous Epithelial Cell Urine Moderate /hpf (Few); WBC Urine >100 /hpf (0-3); pH Urine 5.5 (5.0-9.0)
[2023-11-07] MEDS: NOREPINEPHRINE 8 MG/D5W 250 ML 8 MG/250 ML BAG 18.75 MG IV CONT (16:05)
[2023-11-07] MEDS: MAGNESIUM SULF 2 GM/WATER 50ML 2 GM/50 ML BAG IVPB (16:22)
[2023-11-07] MEDS: PIPERACILLN/TAZ 3.375GM/NS50ML 3.375 GM/50 ML BAG IVPB (17:13)
[2023-11-07 17:21] LABS: Reflex Lactic Acid Yes or No Add Lactic
[2023-11-07 18:05] LABS: Troponin I 0.062 ng/mL (0.000-0.034)
[2023-11-07] MEDS: DOXYCYCLINE 100 MG/NS 100 ML 100 MG/100 ML BAG IVPB (18:24)
[2023-11-07] MEDS: SODIUM CHLORIDE 0.9% IV 1,000 ML 999 ML IV CONT (18:34)
--- NOTE | 2023-11-07 18:36 | PM.IMHP ---
H&P: HPI History of Present Illness Date/Time: 11/07/23 18:36 Chief Complaint: Hematuria, Near-Syncope Narrative: 73 y/o M presents here with syncope and hematuria with PMH of AFib, anxiety, depression, hypertension, morbid obesity, and AMINA. The patient presents here with hematuria, difficulty urinating, and near-syncope. Patient was brought to the emergency department from his urologist's office today after he had a near syncopal episode. Patient was at the office for hematuria and difficulty urinating. Difficulty urinating started on Fri (11/04) and hematuria (11/05). Patient was able to get into the office today (Fri). Patient able to urinate just before appt. During this visit they attempted to catheterize the patient for a urine sample but he became lightheaded and had near syncopal episode. Prior to visit, the patient was also having dizziness with positional changes that started 1-2 days ago. Hematuria/difficulty urinating is accompanied by weakness, dizziness, shortness of breath, chills, and fatigue. SOB occurring with mild exertion and would resolve with rest, started in the last 2 days. Upon presentation to the emergency department his initial blood pressure was 66/53 and patient was ill-appearing/pale. Improved post-fluids and initiation of pressors. Initial VS at presentation: 37.9? F, HR 93, RR 20, 66/53, and 95% on RA. ED workup showed: WBC 14.0, hemoglobin 12.5, INR 1.3, pH 7.291, sodium 136, potassium 3.1, creatinine 2.6 and GFR 24 (previously 1.2 and GFR 63 on 08/20/2023), magnesium 1.5, initial troponin 0.068, BNP 5420, UA consistent with UTI. Viral PCR negative. CXR showed chronic elevation the right hemidiaphragm with opacities at the bilateral lung bases that favor atelectasis versus pneumonia. CT of the chest/abdomen/pelvis showed chronic elevation of the right hemidiaphragm, bilateral nonobstructing nephrolithiasis, Cristina catheter in the bladder which is decompressed with wall thickening and stranding concerning for cystitis, small bilateral fat containing inguinal hernias and change of prior umbilical hernia mesh repair. Review of Systems Review of Systems: All systems reviewed & are unremarkable except as noted in HPI and below PMFSH Past Medical History Medical History Anemia, unspecified Anxiety Atrial fibrillation Benign prostatic hyperplasia with lower urinary tract symptoms Bilateral inguinal hernia, without obstruction or gangrene, not specified as recurrent Cholecystectomy planned Depression Essential (primary) hypertension History of GI bleed Secondary to gastric bypass and NSAID use Hypogonadism in male Mixed hyperlipidemia Morbid obesity Neuropathy AMINA (obstructive sleep apnea) PAD (peripheral artery disease) Prediabetes Primary insomnia Surgical History Surgical History H/O hernia repair History of arthroscopy of both knees History of bilateral carpal tunnel release History of cholecystectomy Hx of gastric bypass Family History Family History Father Cerebrovascular accident Hypertension Sibling Family history of diabetes mellitus in first degree relative Aortic aneurysm PVD (peripheral vascular disease) Mother Acute myocardial infarction Family history of coronary artery disease Cerebrovascular accident Diabetes mellitus Family history of malignant neoplasm Hypertension Social History Social History Social History: 01/29/22 - Reports never smoker. Occasional iced slushee cocktail but hasn't had alcohol in 2 to 3 months he states. Denies marijuana or illicit substance use. Smoking status: Never smoker Second hand tobacco smoke exposure: Yes Alcohol intake: current Substance use: current Substance use type: does not use Do You Feel Sa
[2023-11-07 19:00] LABS: Lactic Acid 2.3 mmol/L (0.7-2.0)
[2023-11-07] MEDS: VANCOMYCIN 1,250 MG/NS 250 ML 1,250 MG/250 ML BAG 166.67 MG IVPB ×2 (19:16→20:35)
[2023-11-07 20:28] LABS: Creatine Kinase 132 U/L (55-170)
[2023-11-07 20:35] LABS: Procalcitonin 66.2 ng/mL
[2023-11-07] MEDS: LACTATED RINGERS 1,000 ML 100 ML IV CONT (20:44)
[2023-11-07 20:46] LABS: Creatinine Urine 167.9 mg/dL; Total Protein Urine Random 180 mg/dL
[2023-11-07 20:58] LABS: Creatinine Urine 176.1 mg/dL; Total Protein Urine Random 180 mg/dL; Ur Ttl Prot Creatinine Ratio 1.02 mg/mg (0-0.20)
[2023-11-07 21:03] LABS: Sodium Urine Random 80 meq/L
[2023-11-07] MEDS: POTASSIUM/PHOSPHORUS/SODIUM 1.5 GM PACKET 1 PACKET PO (21:21)
[2023-11-07] MEDS: traZODone HCL 50 MG TABLET 150 MG PO (22:58)
[2023-11-07] MEDS: APIXABAN 5 MG TABLET PO (22:59)
[2023-11-07] MEDS: NOREPINEPHRINE 8 MG/D5W 250 ML 8 MG/250 ML BAG 26.25 MG IV CONT (23:15)
--- NOTE | 2023-11-07 23:25 | ADMGEN ---
At 1930 on 11/07/2023, this patient, Armando Diaz, was admitted to Intensive Care Unit-3. Patient/family oriented to hospital policies and general routines including ID bracelet, bed and alarms, visiting hours, pain management, procedures, bathroom and other care routines, personal items, smoking policy, room service/diet, and visiting hours. Information on how to activate the Rapid Response Team has been discussed. Patient/Family are encouraged to report perceived risks to care and to ask questions if they do not understand what they are told or what they should do.
[2023-11-07] MEDS: PIPERACILLIN/TAZ 2.25G/NS 50ML 2.25 GM/50 ML BAG IVPB (23:37)
[2023-11-08] VITALS (29 sets, daily range): BP systolic 88–132; BP diastolic 57–75; PULSE 54–79; RESP 15–25; TEMP 36.4–36.9; O2SAT 93–100
[2023-11-08 00:50] LABS: Alanine Aminotransferase 20 U/L (6-50); Albumin Level 3.2 g/dL (3.5-5.1); Alkaline Phosphatase 70 U/L (38-126); Anion Gap 12 mmol/L (4-12); Aspartate Amino Transferase 34 U/L (17-59); Bilirubin,Total 0.6 mg/dL (0.2-1.3); Blood Urea Nitrogen 33 mg/dL (9-20); Calcium 7.6 mg/dL (8.4-10.2); Carbon Dioxide 23 mmol/L (22-30); Chloride 101 mmol/L (98-107); Estimated CRCL calculation 39 ml/min; Estimated Glomerular Filt Rate 29; Glucose 166 mg/dL (65-110); Potassium 3.7 mmol/L (3.4-5.0); Sodium 136 mmol/L (137-145)
[2023-11-08] MEDS: DOXYCYCLINE 100 MG/NS 100 ML 100 MG/100 ML BAG IVPB (06:12)
[2023-11-08] MEDS: PIPERACILLIN/TAZ 2.25G/NS 50ML 2.25 GM/50 ML BAG IVPB (06:13)
[2023-11-08 06:24] LABS: Alanine Aminotransferase 19 U/L (6-50); Alkaline Phosphatase 63 U/L (38-126); Anion Gap 10 mmol/L (4-12); Aspartate Amino Transferase 33 U/L (17-59); Bilirubin,Total 0.5 mg/dL (0.2-1.3); Blood Urea Nitrogen 36 mg/dL (9-20); Calcium 7.4 mg/dL (8.4-10.2); Carbon Dioxide 23 mmol/L (22-30); Chloride 103 mmol/L (98-107); Estimated CRCL calculation 43 ml/min; Estimated Glomerular Filt Rate 33; Glucose 106 mg/dL (65-110); Hematocrit 31.9 % (42.0-52.0); Hemoglobin 10.4 g/dL (14.0-18.0); Lactic Acid Reflex 1.1 mmol/L (0.7-2.0); Magnesium 1.9 mg/dL (1.6-2.3); Mean Corpuscular HGB Conc 32.6 g/dl (32-36); Mean Corpuscular Hemoglobin 28.7 pg (26-34); Mean Corpuscular Volume 88.1 fl (80-100); Mean Platelet Volume 9.9 fl (7.4-10.4); Phosphorus 3.5 mg/dL (2.5-4.5); Platelet Count Result 151 k/mm3 (150-375); Potassium 3.5 mmol/L (3.4-5.0); Red Blood Count 3.62 M/mm3 (4.6-6.20); Red Cell Distribution Width 17.8 % (11.5-14.5); Sodium 136 mmol/L (137-145); White Blood Count 24.6 K/mm3 (4.5-10.0)
[2023-11-08 06:58] LABS: Procalcitonin 68.9 ng/mL
[2023-11-08 08:21] LABS: Band Neutrophils Percent 13 % (0-6); Lymphocytes Absolute Manual 1.23 K/mm3 (1.1-4.5); Lymphocytes Percent Manual 5 % (18-44); Monocytes Absolute Manual 0.98 K/mm3 (0.1-0.90); Monocytes Percent Manual 4 % (3-9); Neutrophils Absolute Manual 22.38 K/mm3 (1.3-6.7); Neutrophils Percent Manual 78 % (46-73); Nucleated Red Blood Cells 1 %; Platelet Estimate Adequate (Adequate); Total Cells Counted 100
[2023-11-08 08:22] LABS: Anisocytosis 1+; Ovalocytes 1+; Schistocytes None Seen
--- NOTE | 2023-11-08 08:43 | WPDCNINT ---
Assessment and Plan Assessment and plan (1) Septic shock: Code(s): A41.9 - Sepsis, unspecified organism; R65.21 - Severe sepsis with septic shock Status: Acute Assessment and Plan: patient presented with septic shock secondary to UTI blood and urine cultures have been sent and are pending patient received vancomycin doxycycline and Zosyn. I will DC doxy and hold vancomycin at this time and continue Zosyn until cultures also back. patient received IV fluid bolus and is on IV fluids which will be continued for now continue Levophed titration to maintain mean arterial pressure lactic acid has normalized (2) Acute UTI: Code(s): N39.0 - Urinary tract infection, site not specified Status: Acute Assessment and Plan: see above (3) Elevated troponin: Code(s): R79.89 - Other specified abnormal findings of blood chemistry Status: Acute Assessment and Plan: elevated troponin likely secondary to septic shock and hypotension. Patient denies any chest pain and has no ST segment elevation on EKG. He is already anticoagulated. Echo is ordered and pending (4) Acute kidney injury: Code(s): N17.9 - Acute kidney failure, unspecified Status: Acute Assessment and Plan: acute kidney injury likely sepsis and shock CT scan of abdomen does not show any obstructing stone hydronephrosis monitor urine output electrolytes and creatinine continue cautious IV fluids in light of patient's concern heart failure check CK level if kidneys to not recover will consult nephrology (5) Bilateral lower extremity edema: Code(s): R60.0 - Localized edema Status: Acute (6) Congestive heart failure: Code(s): I50.9 - Heart failure, unspecified Status: Acute Assessment and Plan: history of orthopnea PND and lower extremity swelling suggestive congestive heart failure his BNP 5 420 at this time I will continue IV fluids and cautious rate due to acute kidney injury and septic shock but eventually he will need diuretics echo is ordered and pending (7) Atrial fibrillation: Qualifiers: Atrial fibrillation type: unspecified Qualified Code(s): I48.91 - Unspecified atrial fibrillation Code(s): I48.91 - Unspecified atrial fibrillation Status: Acute Assessment and Plan: in controlled ventricular rate continue apixaban (8) Benign prostatic hyperplasia with lower urinary tract symptoms: Qualifiers: Lower urinary tract symptom detail: unspecified Qualified Code(s): N40.1 - Benign prostatic hyperplasia with lower urinary tract symptoms Code(s): N40.1 - Benign prostatic hyperplasia with lower urinary tract symptoms Status: Acute Assessment and Plan: patient seen urologist for BPH. Continue Cristina at this time consult urology (9) Hematuria: Code(s): R31.9 - Hematuria, unspecified Status: Acute Assessment and Plan: urine appears fairly clear this time hence I will continue Eliquis and monitor Plan DVT prophylaxis - Eliquis Stress ulcer prophylaxis - Protonix is ordered Nutrition - heart healthy diet ordered Code Status - Full Code Total Critical Care Time - 35 minutes Due to a high probability of clinically significant, life threatening deterioration, the patient required my highest level of preparedness to intervene emergently and I personally spent this critical care time directly and personally managing the patient. This critical care time included obtaining a history; examining the patient; pulse oximetry; ordering and review of studies; arranging urgent treatment with development of a management plan; evaluation of patient's response to treatment; frequent reassessment; and discussions with other providers. It was exclusive of separately billable procedures and treating other patients and teaching time. Please see Assessment and Plan section and the rest of the no
[2023-11-08] MEDS: LACTATED RINGERS 1,000 ML 100 ML IV CONT (10:07)
[2023-11-08] MEDS: FINASTERIDE 5 MG TABLET PO (10:08)
[2023-11-08] MEDS: APIXABAN 5 MG TABLET PO ×2 (10:08→20:26)
[2023-11-08] MEDS: PANTOPRAZOLE SODIUM IV 40 MG VIAL IV PUSH (10:08)
[2023-11-08] MEDS: PIPERACILLN/TAZ 3.375GM/NS50ML 3.375 GM/50 ML BAG IVPB ×3 (11:46→23:40)
[2023-11-08] MEDS: CENTRAL LINE FLUSH 10 ML IV PUSH ×2 (14:00→20:32)
--- NOTE | 2023-11-08 16:23 | PM.IMPN ---
Progress Note: A&P Assessment and Plan (1) Congestive heart failure: Code(s): I50.9 - Heart failure, unspecified Status: Acute (2) Benign prostatic hyperplasia with lower urinary tract symptoms: Qualifiers: Lower urinary tract symptom detail: unspecified Qualified Code(s): N40.1 - Benign prostatic hyperplasia with lower urinary tract symptoms Code(s): N40.1 - Benign prostatic hyperplasia with lower urinary tract symptoms Status: Acute (3) Acute UTI: Code(s): N39.0 - Urinary tract infection, site not specified Status: Acute (4) Septic shock: Code(s): A41.9 - Sepsis, unspecified organism; R65.21 - Severe sepsis with septic shock Status: Acute (5) Leukocytosis: Code(s): D72.829 - Elevated white blood cell count, unspecified Status: Acute (6) Acute kidney injury: Code(s): N17.9 - Acute kidney failure, unspecified Status: Acute Plan Blood pressure stable. Afebrile. Continue Zosyn. Will follow up repeat blood culture to be drawn tomorrow. KENNEDI is improving. Continue to monitor leukocytosis. Patient is improving, he can be transferred out to telemetry floor. Wishes to be full code. Continue apixaban Subjective Date/time seen: 11/08/23 16:23 Interval history: No acute overnight events. Levophed has been weaned off. Patient feels great. Review of Systems Review of Systems: All systems reviewed & are unremarkable except as noted in HPI and below (Subjective) Exam Const: General: comfortable and no acute distress Other: Morbidly obese Eyes: Pupils: Equal, round and reactive pupils present Neck: Neck: supple Other: Right IJ in place Cardio: Rate: regular rate Rhythm: regular rhythm GI: GI Palp: Yes Soft to palpation and No Tenderness to palpation present (GI) Extrem: General: edema Other: 3+ distal to the knees bilaterally Objective Data Vital Signs Vital Signs: Vital Signs - 24 hr 11/07/23 16:33 11/07/23 17:06 11/07/23 17:16 Temperature Pulse Rate 88 88 86 Respiratory Rate Blood Pressure 87/42 L 87/48 L 85/51 L Pulse Oximetry Oxygen Delivery Oxygen Flow Rate 11/07/23 17:25 11/07/23 17:38 11/07/23 17:50 Temperature Pulse Rate 88 85 81 Respiratory Rate 26 H Blood Pressure 90/53 L 75/42 L 80/43 L Pulse Oximetry 93 Oxygen Delivery Oxygen Flow Rate 11/07/23 17:01 11/07/23 17:04 11/07/23 17:36 Temperature Pulse Rate 91 90 85 Respiratory Rate 24 H 22 H 23 H Blood Pressure 87/48 L Pulse Oximetry 91 91 92 Oxygen Delivery Oxygen Flow Rate 11/07/23 17:45 11/07/23 17:46 11/07/23 17:48 Temperature Pulse Rate 82 82 83 Respiratory Rate 29 H 25 H 28 H Blood Pressure 88/51 L 80/43 L Pulse Oximetry 92 92 92 Oxygen Delivery Oxygen Flow Rate 11/07/23 18:05 11/07/23 18:06 11/07/23 18:15 Temperature Pulse Rate 83 82 81 Respiratory Rate 28 H 29 H 25 H Blood Pressure 78/51 L Pulse Oximetry 90 91 91 Oxygen Delivery Oxygen Flow Rate 11/07/23 18:16 11/07/23 18:35 11/07/23 19:51 Temperature Pulse Rate 82 87 76 Respiratory Rate 29 H 18 Blood Pressure 90/54 L 101/57 L 111/67 Pulse Oximetry 91 94 Oxygen Delivery Oxygen Flow Rate 11/07/23 20:30 11/07/23 21:00 11/07/23 20:00 Temperature 99.0 F Pulse Rate 75 66 77 Respiratory Rate 24 H Blood Pressure 116/68 112/70 111/67 Pulse Oximetry 95 Oxygen Delivery Oxygen Flow Rate 11/07/23 20:00 11/07/23 22:00 11/08/23 00:00 Temperature Pulse Rate 57 L Respiratory Rate 19 Blood Pressure 108/66 Pulse Oximetry 96 95 95 Oxygen Delivery Nasal Cannula Nasal Cannula Oxygen Flow Rate 2 2 11/07/23 21:15 11/07/23 23:15 11/08/23 00:00 Temperature 98.4 F Pulse Rate 67 67 58 L Respiratory Rate 22 H Blood Pressure 118/70 107/64 106/68 Pulse Oximetry 97 Oxygen Delivery Oxygen Flow Rate 11/07/23 23:30 11/08/23
[2023-11-08] MEDS: traZODone HCL 50 MG TABLET 150 MG PO (20:26)
[2023-11-08] MEDS: busPIRone HCL 10 MG TABLET PO (20:31)
[2023-11-08] MEDS: ACETAMINOPHEN 325 MG TABLET 650 MG PO (23:41)
[2023-11-09] VITALS (19 sets, daily range): BP systolic 117–141; BP diastolic 57–81; PULSE 52–70; RESP 16–20; TEMP 36.1–36.5; O2SAT 90–98
[2023-11-09] MEDS: LACTATED RINGERS 1,000 ML 50 ML IV CONT (05:02)
[2023-11-09] MEDS: PIPERACILLN/TAZ 3.375GM/NS50ML 3.375 GM/50 ML BAG IVPB ×4 (05:19→23:20)
[2023-11-09] MEDS: CENTRAL LINE FLUSH 10 ML IV PUSH ×2 (05:25→14:45)
[2023-11-09 05:36] LABS: Basophils Absolute Auto 0.1 K/mm3 (0.0-0.1); Basophils Percent Auto 0.3 % (0.2-1.2); Eosinophils Absolute Auto 0.2 K/mm3 (0-0.3); Hematocrit 33.1 % (42.0-52.0); Hemoglobin 10.8 g/dL (14.0-18.0); Immature Granulocyte Absolute 0.65 K/mm3 (0.00-0.031); Immature Granulocyte Percent A 3.3 % (0-0.5); Lymphocytes Absolute Auto 1.41 K/mm3 (0.9-3.2); Lymphocytes Percent Auto 7.1 % (18.3-44.2); Mean Corpuscular HGB Conc 32.6 g/dl (32-36); Mean Corpuscular Hemoglobin 28.4 pg (26-34); Mean Corpuscular Volume 87.1 fl (80-100); Mean Platelet Volume 10.4 fl (7.4-10.4); Monocytes Absolute Auto 1.7 K/mm3 (0.1-0.6); Monocytes Percent Auto 8.5 % (2.6-8.5); Neutrophils Absolute Auto 15.8 K/mm3 (1.3-6.7); Neutrophils Percent Auto 79.8 % (45.5-73.1); Platelet Count Result 162 k/mm3 (150-375); Red Cell Distribution Width 17.8 % (11.5-14.5); White Blood Count 19.8 K/mm3 (4.5-10.0)
[2023-11-09 05:47] LABS: Alanine Aminotransferase 20 U/L (6-50); Albumin Level 3.1 g/dL (3.5-5.1); Alkaline Phosphatase 76 U/L (38-126); Anion Gap 5 mmol/L (4-12); Aspartate Amino Transferase 32 U/L (17-59); Bilirubin,Total 0.5 mg/dL (0.2-1.3); Blood Urea Nitrogen 27 mg/dL (9-20); Calcium 8.2 mg/dL (8.4-10.2); Carbon Dioxide 27 mmol/L (22-30); Chloride 105 mmol/L (98-107); Estimated CRCL calculation 57 ml/min; Estimated Glomerular Filt Rate 46; Glucose 94 mg/dL (65-110); Phosphorus 2.2 mg/dL (2.5-4.5); Potassium 3.1 mmol/L (3.4-5.0); Sodium 137 mmol/L (137-145)
--- NOTE | 2023-11-09 08:23 | PM.IMPN ---
Progress Note: A&P Assessment and Plan (1) Hematuria: Code(s): R31.9 - Hematuria, unspecified Status: Acute (2) Congestive heart failure: Code(s): I50.9 - Heart failure, unspecified Status: Acute (3) Septic shock: Code(s): A41.9 - Sepsis, unspecified organism; R65.21 - Severe sepsis with septic shock Status: Acute (4) Acute UTI: Code(s): N39.0 - Urinary tract infection, site not specified Status: Acute (5) Leukocytosis: Code(s): D72.829 - Elevated white blood cell count, unspecified Status: Acute (6) Benign prostatic hyperplasia with lower urinary tract symptoms: Qualifiers: Lower urinary tract symptom detail: unspecified Qualified Code(s): N40.1 - Benign prostatic hyperplasia with lower urinary tract symptoms Code(s): N40.1 - Benign prostatic hyperplasia with lower urinary tract symptoms Status: Acute Plan Mr. Armando Diaz is a 73-year-old male with a history of morbid obesity, history of gastric bypass, AFib on apixaban, anxiety and depression, hypertension, history of kidney stones/bladder stone, BPH, AMINA, congestive heart failure presents from Urology office near syncope and extreme weakness. For 3 days prior to admission the patient was having dysuria and inability to void adequately. Then he noticed blood in his urine. He then presented to his urologist office on 11/07/2023 and he there a Cristina catheter was being placed when he felt like he was going to pass out. He was sent to [place] [facility] and his initial blood pressure was 66/53 and the patient appeared pale and ill. Patient was given IV fluids, antibiotics, vasopressors. Subsequently admitted to ICU for septic shock due to UTI on 11/07/2023. On 11/08/2023 the Levophed was weaned off and patient transferred out to telemetry unit. ----- Septic shock due to UTI -presented from Urology office with near syncope. Placed on Levophed and admitted to the ICU -on 11/08/2023 Levophed discontinued and patient transferred out of ICU. Lactic acidosis normalized. Fluids discontinued due to heart failure -on 11/09/2023 his blood pressures continue to be normal. Afebrile. -urine culture on 11/07/2023 growing E coli, pending sensitivities -blood culture on 11/07/2023 1/2 bottles growing Gram-negative bacilli -blood culture on 11/09/2023 pending -initially received vancomycin doxycycline and Zosyn, switched to only Zosyn on 11/08/2023 Acute kidney injury -presented with a creatinine of 3.0 on admission, bili due to sepsis and shock and ATN -received IV fluids and antibiotics, CK level within normal limits -on 11/09/2023 his serum creatinine is 1.5 and he makes adequate urine output, continue to monitor Congestive heart failure, acute, improved now compensated -this is a relatively new diagnosis. Recently saw his song plugger, and echocardiogram was done and we are waiting those records to be obtained. -he has recently developed increasing lower extremity swelling. On presentation he has required 2 L nasal cannula, acute hypoxic respiratory failure due to CHF and fluid overload from iatrogenic fluid resuscitation. On 11/09/2023 he is breathing well on room air. -low salt diet, strict intake/output, daily weights -fluids discontinued on 11/08/2023, more guideline directed medical therapy based on echocardiogram results -hold off on restarting Lasix for now, restart judiciously Chronic hypertension -presented with hypotension on admission. -holding DIRECTOR OF REAL ESTATE furosemide, lisinopril hydrochlorothiazide AFib on apixaban -currently rate controlled. -continue telemetry -DIRECTOR OF REAL ESTATE apixaban 5 mg p.o. b.i.d. restarted on admission BPH/hematuria -urology consultation pending -continue DIRECTOR OF REAL ESTATE finasteride Chronic conditions Morbid obesity/history of gastric bypass: Advised to continue seek out weight loss. Having 5 loose stools on the night of 11/08/2023, he does have this chronically. Continue to monitor
[2023-11-09] MEDS: APIXABAN 5 MG TABLET PO ×2 (08:54→20:25)
[2023-11-09] MEDS: FINASTERIDE 5 MG TABLET PO (08:54)
[2023-11-09] MEDS: busPIRone HCL 10 MG TABLET PO ×3 (08:54→17:01)
[2023-11-09] MEDS: POTASSIUM CHLORIDE 20 MEQ ER TABLET 40 MEQ PO (09:30)
--- NOTE | 2023-11-09 14:13 | WPDURCON ---
Assessment and Plan Assessment and plan (1) Septic shock: Code(s): A41.9 - Sepsis, unspecified organism; R65.21 - Severe sepsis with septic shock Status: Acute (2) Benign prostatic hyperplasia with lower urinary tract symptoms: Qualifiers: Lower urinary tract symptom detail: unspecified Qualified Code(s): N40.1 - Benign prostatic hyperplasia with lower urinary tract symptoms Code(s): N40.1 - Benign prostatic hyperplasia with lower urinary tract symptoms Status: Acute Plan Continue broad-spectrum antibiotics. Change to p.o. antibiotics when sensitivities return. Can have a voiding trial before discharge home. Continue dual therapy for BPH. Wants Cristina removed for voiding trial please bladder scan after voiding and call if residual urine greater than 200 cc. Outpatient urologic follow-up Urology Consult Note HPI Date Seen: 11/09/23 Requesting Physician: Carlita Mathis MD Primary Care Provider: Orestes Hagen MD Consult Narrative Narrative: Armando Diaz is a 73 year old male with a prior history of bladder stones treated in the past. He has history of BPH on finasteride and tamsulosin. He had 3 days of urinary infection type symptoms with dysuria and fatigue. He presented to the urology office for a urine culture. Upon arrival he was found to be hypotensive and on the verge of passing out. He was referred out to the emergency room. He was admitted to the ICU and placed on pressors. He is now out of the ICU in the IMU and much improved condition. Urine culture is positive with organism resistant to quinolones as well as sulfa. Blood cultures positive as well. He is feeling improved on IV antibiotics. Cristina catheter is in place draining clear yellow urine. He denies prominent BPH symptoms. He denies history of urinary retention. He voids with a good stream. Review of Systems Review of Systems: All systems reviewed & are unremarkable except as noted in HPI and below PMFSH Past Medical History Medical History Anemia, unspecified Anxiety Atrial fibrillation Benign prostatic hyperplasia with lower urinary tract symptoms Bilateral inguinal hernia, without obstruction or gangrene, not specified as recurrent Cholecystectomy planned Depression Essential (primary) hypertension History of GI bleed Secondary to gastric bypass and NSAID use Hypogonadism in male Mixed hyperlipidemia Morbid obesity Neuropathy AMINA (obstructive sleep apnea) PAD (peripheral artery disease) Prediabetes Primary insomnia Surgical History Surgical History H/O hernia repair History of arthroscopy of both knees History of bilateral carpal tunnel release History of cholecystectomy Hx of gastric bypass Family History Family History Father Cerebrovascular accident Hypertension Sibling Family history of diabetes mellitus in first degree relative Aortic aneurysm PVD (peripheral vascular disease) Mother Acute myocardial infarction Family history of coronary artery disease Cerebrovascular accident Diabetes mellitus Family history of malignant neoplasm Hypertension Social History Social History Social History: 01/29/22 - Reports never smoker. Occasional iced slushee cocktail but hasn't had alcohol in 2 to 3 months he states. Denies marijuana or illicit substance use. Smoking status: Never smoker Second hand tobacco smoke exposure: Yes Alcohol intake: current Substance use: current Substance use type: does not use Do You Feel Safe in your Home?: Yes Lack of Transportation: No Lack of Food: Never True Current Housing: I Have Housing Concerned About Future Housing: No Difficulty Paying Gas/Electric Bills: No Difficulty Paying for Meds: No Cu
[2023-11-09] MEDS: ACETAMINOPHEN 325 MG TABLET 650 MG PO ×2 (17:15→23:31)
[2023-11-09] MEDS: ZOLPIDEM TARTRATE (*CRX) 5 MG TABLET PO (20:25)
[2023-11-10] VITALS (12 sets, daily range): BP systolic 124–143; BP diastolic 52–72; PULSE 46–76; RESP 16–20; TEMP 36.4–36.8; O2SAT 92–98
[2023-11-10 04:28] LABS: IFOB Positive Control Positive; Immunochemical Fecal Occult Bl Negative (N)
[2023-11-10 04:35] LABS: Basophils Absolute Auto 0.1 K/mm3 (0.0-0.1); Basophils Percent Auto 0.4 % (0.2-1.2); Eosinophils Absolute Auto 0.2 K/mm3 (0-0.3); Eosinophils Percent Auto 1.2 % (0-4.4); Hematocrit 32.3 % (42.0-52.0); Hemoglobin 10.3 g/dL (14.0-18.0); Immature Granulocyte Absolute 0.13 K/mm3 (0.00-0.031); Immature Granulocyte Percent A 1.1 % (0-0.5); Lymphocytes Absolute Auto 1.77 K/mm3 (0.9-3.2); Lymphocytes Percent Auto 14.7 % (18.3-44.2); Mean Corpuscular HGB Conc 31.9 g/dl (32-36); Mean Corpuscular Hemoglobin 27.6 pg (26-34); Mean Corpuscular Volume 86.6 fl (80-100); Mean Platelet Volume 10.7 fl (7.4-10.4); Monocytes Absolute Auto 1.2 K/mm3 (0.1-0.6); Neutrophils Absolute Auto 8.7 K/mm3 (1.3-6.7); Neutrophils Percent Auto 72.6 % (45.5-73.1); Nucleated Red Blood Cells Perc 0.2 % (0.0-0.2); Platelet Count Result 163 k/mm3 (150-375); Red Blood Count 3.73 M/mm3 (4.6-6.20); Red Cell Distribution Width 17.5 % (11.5-14.5)
[2023-11-10 04:52] LABS: Alanine Aminotransferase 18 U/L (6-50); Albumin Level 3.1 g/dL (3.5-5.1); Alkaline Phosphatase 74 U/L (38-126); Anion Gap 9 mmol/L (4-12); Aspartate Amino Transferase 26 U/L (17-59); Bilirubin,Total 0.5 mg/dL (0.2-1.3); Blood Urea Nitrogen 22 mg/dL (9-20); Calcium 8.6 mg/dL (8.4-10.2); Carbon Dioxide 25 mmol/L (22-30); Chloride 105 mmol/L (98-107); Estimated CRCL calculation 61 ml/min; Estimated Glomerular Filt Rate 49; Glucose 92 mg/dL (65-110); Phosphorus 2.4 mg/dL (2.5-4.5); Potassium 3.3 mmol/L (3.4-5.0); Sodium 139 mmol/L (137-145)
[2023-11-10 05:03] LABS: Toxigenic C. Diff NEGATIVE (NEGATIVE)
[2023-11-10] MEDS: PIPERACILLN/TAZ 3.375GM/NS50ML 3.375 GM/50 ML BAG IVPB (05:29)
[2023-11-10] MEDS: PREGABALIN (*CRX) 75 MG CAPSULE PO ×2 (06:18→21:44)
[2023-11-10] MEDS: busPIRone HCL 10 MG TABLET PO ×3 (08:41→16:39)
[2023-11-10] MEDS: ACIDOPHILUS/BULGARICUS CHEWABLE TABLET 1 TABLET PO ×4 (08:41→20:49)
[2023-11-10] MEDS: APIXABAN 5 MG TABLET PO ×2 (08:41→20:49)
[2023-11-10] MEDS: FINASTERIDE 5 MG TABLET PO (08:41)
--- NOTE | 2023-11-10 09:22 | WPDUROPN2 ---
Progress Note: A&P Assessment and Plan (1) Septic shock: Code(s): A41.9 - Sepsis, unspecified organism; R65.21 - Severe sepsis with septic shock Status: Acute Assessment and Plan: Source of infection is UTI. Sepsis has resolved. Blood pressures are stable and he is remaining afebrile. WBC is improved to 12.0. Preliminary blood cultures negative today. Continue broad-spectrum IV antibiotics while awaiting final cultures (2) Acute UTI: Code(s): N39.0 - Urinary tract infection, site not specified Status: Acute Assessment and Plan: Urine culture with growth of E coli resistant to fluoroquinolones and Bactrim. Currently on Zosyn. Can transition to p.o. cephalosporin prior to discharge. (3) Hematuria: Code(s): R31.9 - Hematuria, unspecified Status: Acute Assessment and Plan: Secondary to UTI, likely exacerbated by Eliquis. Hematuria has resolved, urine is clear yellow at this time and Eliquis has been resumed (4) Benign prostatic hyperplasia with lower urinary tract symptoms: Qualifiers: Lower urinary tract symptom detail: unspecified Qualified Code(s): N40.1 - Benign prostatic hyperplasia with lower urinary tract symptoms Code(s): N40.1 - Benign prostatic hyperplasia with lower urinary tract symptoms Status: Acute Assessment and Plan: Continue finasteride. Okay for Cristina removal and void trial. Bladder scan after first void and call if residual >300 cc. Subjective Subjective Date/Time Seen: 11/10/23 09:22 Interval history: Feeling greatly improved today. Reports significant improvement in shortness of breath and lightheadedness. He is ambulating without difficulty. He is bothered by his Cristina catheter and reports discomfort related to this. It is draining clear yellow urine. He is eager for catheter removal. He also complains of diarrhea. Denies nausea, vomiting, fever, or chills. He is tolerating his diet. Review of Systems Review of Systems: All systems reviewed & are unremarkable except as noted in HPI and below Exam Narrative: General: Awake, alert, comfortable, no acute distress HEENT: Normocephalic, atraumatic, sclerae anicteric Respiratory: Normal respiratory effort, no accessory muscle use Abdomen: Nondistended, soft, nontender : Cristina catheter draining clear yellow Skin: Normal coloration, warm and dry Neurologic: No focal neuro deficits noted Psychiatric: Appropriate mood and affect, judgment and insight intact Objective Data Vital Signs Vital Signs: Vital Signs - 24 hr 11/09/23 12:00 11/09/23 10:00 11/09/23 12:00 Temperature 97.3 F L Pulse Rate 54 L 54 L 62 Respiratory Rate 20 20 Blood Pressure 137/67 Pulse Oximetry 96 96 Oxygen Delivery Room Air Fraction of Inspired Oxygen 21 11/09/23 12:00 11/09/23 14:00 11/09/23 15:58 Temperature 97.0 F L Pulse Rate 62 55 L 52 L Respiratory Rate 20 Blood Pressure 126/81 Pulse Oximetry 96 Oxygen Delivery Fraction of Inspired Oxygen 11/09/23 16:00 11/09/23 16:00 11/09/23 18:00 Temperature Pulse Rate 58 L 67 Respiratory Rate Blood Pressure Pulse Oximetry Oxygen Delivery Room Air Fraction of Inspired Oxygen 11/09/23 19:44 11/09/23 20:00 11/09/23 20:00 Temperature 97.7 F Pulse Rate 55 L 56 L Respiratory Rate 20 Blood Pressure 136/72 Pulse Oximetry 95 Oxygen Delivery Room Air Fraction of Inspired Oxygen 11/09/23 22:00 11/09/23 23:19 11/09/23 23:39 Temperature 97.7 F Pulse Rate 56 L 58 L Respiratory Rate 20 Blood Pressure 141/72 H Pulse Oximetry 90 Oxygen Delivery Room Air Fraction of Inspired Oxygen 11/10/23 00:00 11/10/23 02:00 11/10/23 03:08 Temperature Pulse Rate 59 L 65 Respiratory Rate Blood Pressure Pulse Oximetry Oxygen Delivery Room Air Fraction of Inspired Oxygen 11/10/23 04:03 11/10/23 04:00 11/09
--- NOTE | 2023-11-10 10:05 | PM.IMPN ---
Progress Note: A&P Assessment and Plan (1) Hematuria: Code(s): R31.9 - Hematuria, unspecified Status: Acute (2) Congestive heart failure: Code(s): I50.9 - Heart failure, unspecified Status: Acute (3) Septic shock: Code(s): A41.9 - Sepsis, unspecified organism; R65.21 - Severe sepsis with septic shock Status: Acute (4) Acute UTI: Code(s): N39.0 - Urinary tract infection, site not specified Status: Acute (5) Leukocytosis: Code(s): D72.829 - Elevated white blood cell count, unspecified Status: Acute (6) Benign prostatic hyperplasia with lower urinary tract symptoms: Qualifiers: Lower urinary tract symptom detail: unspecified Qualified Code(s): N40.1 - Benign prostatic hyperplasia with lower urinary tract symptoms Code(s): N40.1 - Benign prostatic hyperplasia with lower urinary tract symptoms Status: Acute Plan Mr. Armando Diaz is a 73-year-old male with a history of morbid obesity, history of gastric bypass, AFib on apixaban, anxiety and depression, hypertension, history of kidney stones/bladder stone, BPH, AMINA on CPAP, congestive heart failure presents from Urology office near syncope and extreme weakness. For 3 days prior to admission the patient was having dysuria and inability to void adequately. Then he noticed blood in his urine. He then presented to his urologist office on 11/07/2023 and he there a Cristina catheter was being placed when he felt like he was going to pass out. He was sent to [place] ER and his initial blood pressure was 66/53 and the patient appeared pale and ill. Patient was given IV fluids, antibiotics, vasopressors. Subsequently admitted to ICU for septic shock due to UTI on 11/07/2023. On 11/08/2023 the Levophed was weaned off and patient transferred out to telemetry unit. ----- Septic shock due to UTI -presented from Urology office with near syncope. Placed on Levophed and admitted to the ICU -on 11/08/2023 Levophed discontinued and patient transferred out of ICU. Lactic acidosis normalized. Fluids discontinued due to heart failure -on 11/09/2023 his blood pressures continue to be normal. Afebrile. -urine culture on 11/07/2023 growing E coli, pending sensitivities -blood culture on 11/07/2023 1/2 bottles growing Gram-negative bacilli -blood culture on 11/09/2023 pending -initially received vancomycin doxycycline and Zosyn, switched to only Zosyn on 11/08/2023 acute hypokalemia -replace and recheck diarrhea -history of gastric bypass, fecal call negative, C diff negative -started a probiotic on 11/09. Imodium p.r.n. Acute kidney injury -presented with a creatinine of 3.0 on admission, likely due to sepsis and shock and ATN -received IV fluids and antibiotics, CK level within normal limits -on 11/10/2023 his serum creatinine is 1.4 and he makes adequate urine output, continue to monitor Congestive heart failure, acute, improved now compensated -this is a relatively new diagnosis. Recently saw his agency sales representative, and echocardiogram was done and we are waiting those records to be obtained. -he has recently developed increasing lower extremity swelling. On presentation he has required 2 L nasal cannula, acute hypoxic respiratory failure due to CHF and fluid overload from iatrogenic fluid resuscitation. On 11/09/2023 he is breathing well on room air. -low salt diet, strict intake/output, daily weights -fluids discontinued on 11/08/2023, more guideline directed medical therapy based on echocardiogram results -hold off on restarting Lasix for now, restart judiciously -start Jardiance 10 mg p.o. q.day and 819 Chronic hypertension -presented with hypotension on admission. -holding CARROT GRADER INSPECTOR furosemide, lisinopril hydrochlorothiazide AFib on apixaban (follows with Dr. Wright @ [facility]) -currently AFib full response. Hold trazodone. -continue telemetry -CARROT GRADER INSPECTOR apixaban 5 mg p.o. b.i.d. restarted on admission
[2023-11-10] MEDS: POTASSIUM CHLORIDE 20 MEQ ER TABLET 40 MEQ PO (10:30)
[2023-11-10] MEDS: EMPAGLIFLOZIN 10 MG TABLET PO (10:51)
[2023-11-10] MEDS: TAMSULOSIN HCL 0.4 MG CAPSULE PO (10:51)
--- NOTE | 2023-11-10 12:00 | PC.NURSE ---
Pt transferred to 252 via wheelchair. Report called to ELIZABETH Silverman
[2023-11-10] MEDS: AMOXICILLIN/CLAVULANATE K 875-125 MG TAB 1 TABLET PO ×2 (13:21→20:48)
[2023-11-10] MEDS: ACETAMINOPHEN 325 MG TABLET 650 MG PO (16:39)
[2023-11-11] VITALS: BP 122/58; PULSE 42; PULSE 52; RESP 20; TEMP 36.5; O2SAT 91
[2023-11-11 04:00] VITALS: BP 146/60; PULSE 45; PULSE 50; RESP 20; TEMP 36.3; O2SAT 96
[2023-11-11] MEDS: ACETAMINOPHEN 325 MG TABLET 650 MG PO (04:20)
[2023-11-11] MEDS: AMOXICILLIN/CLAVULANATE K 875-125 MG TAB 1 TABLET PO (04:20)
[2023-11-11 05:08] LABS: Basophils Absolute Auto 0.1 K/mm3 (0.0-0.1); Basophils Percent Auto 0.6 % (0.2-1.2); Eosinophils Absolute Auto 0.1 K/mm3 (0-0.3); Eosinophils Percent Auto 1.2 % (0-4.4); Hematocrit 34.8 % (42.0-52.0); Hemoglobin 11.4 g/dL (14.0-18.0); Immature Granulocyte Absolute 0.19 K/mm3 (0.00-0.031); Lymphocytes Absolute Auto 2.23 K/mm3 (0.9-3.2); Lymphocytes Percent Auto 23.1 % (18.3-44.2); Mean Corpuscular HGB Conc 32.8 g/dl (32-36); Mean Corpuscular Hemoglobin 28.8 pg (26-34); Mean Corpuscular Volume 87.9 fl (80-100); Mean Platelet Volume 9.9 fl (7.4-10.4); Monocytes Absolute Auto 0.9 K/mm3 (0.1-0.6); Monocytes Percent Auto 9.5 % (2.6-8.5); Neutrophils Absolute Auto 6.1 K/mm3 (1.3-6.7); Neutrophils Percent Auto 63.6 % (45.5-73.1); Platelet Count Result 178 k/mm3 (150-375); Red Blood Count 3.96 M/mm3 (4.6-6.20); Red Cell Distribution Width 17.8 % (11.5-14.5); White Blood Count 9.7 K/mm3 (4.5-10.0)
[2023-11-11 05:19] LABS: Magnesium 2.1 mg/dL (1.6-2.3); Phosphorus 3.3 mg/dL (2.5-4.5)
[2023-11-11 08:00] VITALS: BP 153/54; PULSE 50; PULSE 51; RESP 16; TEMP 36.6; O2SAT 97
[2023-11-11 08:18] VITALS: RESP 16; O2SAT 97
[2023-11-11] MEDS: APIXABAN 5 MG TABLET PO (08:18)
[2023-11-11] MEDS: FINASTERIDE 5 MG TABLET PO (08:18)
[2023-11-11] MEDS: busPIRone HCL 10 MG TABLET PO (08:18)
[2023-11-11] MEDS: TAMSULOSIN HCL 0.4 MG CAPSULE PO (08:18)
[2023-11-11] MEDS: ACIDOPHILUS/BULGARICUS CHEWABLE TABLET 1 TABLET PO (08:18)
[2023-11-11] MEDS: EMPAGLIFLOZIN 10 MG TABLET PO (08:18)
[2023-11-11] MEDS: PREGABALIN (*CRX) 75 MG CAPSULE PO (08:21)
[2023-11-11 09:27] LABS: Anion Gap 9 mmol/L (4-12); Blood Urea Nitrogen 21 mg/dL (9-20); Calcium 8.9 mg/dL (8.4-10.2); Carbon Dioxide 26 mmol/L (22-30); Chloride 106 mmol/L (98-107); Estimated CRCL calculation 61 ml/min; Estimated Glomerular Filt Rate 49; Glucose 89 mg/dL (65-110); Potassium 4.1 mmol/L (3.4-5.0); Sodium 141 mmol/L (137-145)
--- NOTE | 2023-11-11 10:04 | PM.DS ---
DS: Admitting Diagnosis Discharge Date 11/11/2023 Admitting Diagnosis Sepsis DS: Discharge Diagnosis Discharge Diagnosis (1) Acute UTI: Code(s): N39.0 - Urinary tract infection, site not specified Status: Acute (2) Septic shock: Code(s): A41.9 - Sepsis, unspecified organism; R65.21 - Severe sepsis with septic shock Status: Acute (3) Leukocytosis: Code(s): D72.829 - Elevated white blood cell count, unspecified Status: Acute (4) Congestive heart failure: Code(s): I50.9 - Heart failure, unspecified Status: Acute (5) Benign prostatic hyperplasia with lower urinary tract symptoms: Qualifiers: Lower urinary tract symptom detail: unspecified Qualified Code(s): N40.1 - Benign prostatic hyperplasia with lower urinary tract symptoms Code(s): N40.1 - Benign prostatic hyperplasia with lower urinary tract symptoms Status: Acute (6) Hematuria: Code(s): R31.9 - Hematuria, unspecified Status: Acute (7) Acute kidney injury: Code(s): N17.9 - Acute kidney failure, unspecified Status: Acute DS: Summary Hospital Course Hospital Course: Mr. Armando Diaz is a 73-year-old male with a history of morbid obesity, history of gastric bypass, AFib on apixaban, anxiety and depression, hypertension, history of kidney stones/bladder stone, BPH, AMINA on CPAP, congestive heart failure presents from Urology office near syncope and extreme weakness. For 3 days prior to admission the patient was having dysuria and inability to void adequately. Then he noticed blood in his urine. He then presented to his urologist office on 11/07/2023 and he there a Cristina catheter was being placed when he felt like he was going to pass out. He was sent to [place] ER and his initial blood pressure was 66/53 and the patient appeared pale and ill. Patient was given IV fluids, antibiotics, vasopressors. Subsequently admitted to ICU for septic shock due to UTI on 11/07/2023. On 11/08/2023 the Levophed was weaned off and patient transferred out to telemetry unit. ----- On 11/11/2023 the patient's symptomatology on presentation has resolved. He is hemodynamically stable, being treated with antibiotics and stable for discharge to home. Please see the following details below for an interval problems and management. Adverse effects, risk and benefits of medication discussed. Patient agreeable to the plan. All his questions and concerns were answered to satisfaction. He is advised to follow with PCP, his dressed poultry grader Dr. Wright and urology. ----- Septic shock due to UTI -presented from Urology office with near syncope. Placed on Levophed and admitted to the ICU -on 11/08/2023 Levophed discontinued and patient transferred out of ICU. Lactic acidosis normalized. Fluids discontinued due to heart failure -on 11/09/2023 his blood pressures continue to be normal. Afebrile. -urine culture on 11/07/2023 growing E coli, pending sensitivities -blood culture on 11/07/2023 1/2 bottles growing Gram-negative bacilli -blood culture on 11/09/2023 pending -initially received vancomycin doxycycline and Zosyn, switched to only Zosyn on 11/08/2023 -on 11/10/2023 Zosyn switched to Augmentin 875-125 3 times daily. Discharged on another 7 days for total 10 day course. acute hypokalemia -resolved status post replacement diarrhea -history of gastric bypass, fecal call negative, C diff negative -started a probiotic on 11/09. Imodium p.r.n. -resolving on admission. Discharged with Imodium prescription Acute kidney injury -presented with a creatinine of 3.0 on admission, likely due to sepsis and shock and ATN -received IV fluids and antibiotics, CK level within normal limits -on 11/11/2023 his serum creatinine is 1.4 and he makes adequate urine output. Discharged with an order for BMP in 3 days, will be ready to his PCP, follow with PCP. Congestive heart failure, acute, improved n
--- NOTE | 2023-11-11 10:58 | WPDUROPN2 ---
Progress Note: A&P Assessment and Plan (1) Septic shock: Code(s): A41.9 - Sepsis, unspecified organism; R65.21 - Severe sepsis with septic shock Status: Resolved Assessment and Plan: Resolved. Source of infection is UTI. Blood pressures are stable and he remains afebrile. WBC is improved to 9.7. Preliminary blood cultures negative to date. Transitioned to PO augmentin based on sensitivities. (2) Acute UTI: Code(s): N39.0 - Urinary tract infection, site not specified Status: Acute Assessment and Plan: Urine culture with growth of E coli resistant to fluoroquinolones and Bactrim. Continue augmentin as above (3) Hematuria: Code(s): R31.9 - Hematuria, unspecified Status: Resolved Assessment and Plan: Resolved. Secondary to UTI, likely exacerbated by Eliquis. Hematuria has resolved, urine is clear yellow at this time and Eliquis has been resumed (4) Benign prostatic hyperplasia with lower urinary tract symptoms: Qualifiers: Lower urinary tract symptom detail: unspecified Qualified Code(s): N40.1 - Benign prostatic hyperplasia with lower urinary tract symptoms Code(s): N40.1 - Benign prostatic hyperplasia with lower urinary tract symptoms Status: Acute Assessment and Plan: Continue finasteride. Successful void trial 11/10/23, he is voiding without difficulty Plan Okay for discharge from urology standpoint on culture sensitive antibiotics. Continue outpatient follow up with Dr. Hebert as scheduled Subjective Subjective Date/Time Seen: 11/11/23 10:58 Interval history: Armando is doing well today. He did well following strong removal and is voiding without difficulty. Denies dysuria or hematuria. Denies N/V/F/C. Tolerating his diet. Eager for discharge home. Review of Systems Review of Systems: All systems reviewed & are unremarkable except as noted in HPI and below Exam Narrative: General: Awake, alert, comfortable, no acute distress HEENT: Normocephalic, atraumatic, sclerae anicteric Respiratory: Normal respiratory effort, no accessory muscle use Abdomen: Nondistended, soft, nontender Skin: Normal coloration, warm and dry Neurologic: No focal neuro deficits noted Psychiatric: Appropriate mood and affect, judgment and insight intact Objective Data Vital Signs Vital Signs: Vital Signs - 24 hr 11/10/23 12:01 11/10/23 12:01 11/10/23 12:00 Temperature 98.2 F Pulse Rate 46 L 46 L 51 L Respiratory Rate 16 16 Blood Pressure 124/65 Pulse Oximetry 97 97 Oxygen Delivery Room Air Fraction of Inspired Oxygen 11/10/23 16:00 11/10/23 16:00 11/10/23 20:00 Temperature Pulse Rate 50 L 51 L 51 L Respiratory Rate 16 16 Blood Pressure 143/58 H Pulse Oximetry 97 97 Oxygen Delivery Room Air Fraction of Inspired Oxygen 21 11/10/23 20:00 11/10/23 20:00 11/11/23 00:00 Temperature 97.7 F 97.7 F Pulse Rate 48 L 76 42 L Respiratory Rate 20 20 Blood Pressure 125/52 L 122/58 L Pulse Oximetry 94 91 Oxygen Delivery Fraction of Inspired Oxygen 11/11/23 00:00 11/11/23 04:00 11/11/23 04:00 Temperature 97.4 F L Pulse Rate 52 L 45 L 50 L Respiratory Rate 20 Blood Pressure 146/60 H Pulse Oximetry 96 Oxygen Delivery Fraction of Inspired Oxygen 11/11/23 08:00 11/11/23 08:18 11/11/23 08:00 Temperature 97.8 F Pulse Rate 50 L 51 L Respiratory Rate 16 16 Blood Pressure 153/54 H Pulse Oximetry 97 97 Oxygen Delivery Room Air Fraction of Inspired Oxygen Intake/Output Intake/Output: Intake & Output 11/08/23 11/09/23 11/10/23 11/11/23 23:59 23:59 23:59 23:59 Intake Total 2472.2 2900.8 2190 730 Output Total 1350 3150 1653 Balance 1122.2 -249.2 537 730 Meds/Results Medications: Active Medications Generic Name Dose Route Start Last Admin Trade Name Freq PRN Reason Stop Dose Admin Acetaminophen 650 mg 11/08/23 23:29 11/11/23 04:20
== END 2023-11-11 11:40 | disposition home or self-care (01) | DRG 871 ==
LOC: ANHED 18:43 → ANHICU 19:27 → ANHIMU 11-08 18:28 → ANH2MED 11-10 11:26
PROVIDERS: Internal Medicine; Student in an Organized Health Care Education/Training Program; Admitting Provider General Practice; Emergency Provider Emergency Medicine; PCP Family Medicine; Visit Provider General Practice
DX: A41.51 Sepsis due to Escherichia coli [E. coli] (principal); J96.01 Acute respiratory failure with hypoxia; R65.21 Severe sepsis with septic shock; N17.0 Acute kidney failure with tubular necrosis; N39.0 Urinary tract infection, site not specified; Z68.42 Body mass index [BMI] 45.0-49.9, adult; I24.89 Other forms of acute ischemic heart disease; Z16.23 Resistance to quinolones and fluoroquinolones; R55 Syncope and collapse; E66.01 Morbid (severe) obesity due to excess calories; Z20.822 Contact with and (suspected) exposure to COVID-19; N40.1 Benign prostatic hyperplasia with lower urinary tract symptoms; R31.9 Hematuria, unspecified; D64.9 Anemia, unspecified; I11.0 Hypertensive heart disease with heart failure; I50.9 Heart failure, unspecified; E87.6 Hypokalemia; G47.33 Obstructive sleep apnea (adult) (pediatric); I73.9 Peripheral vascular disease, unspecified; G62.9 Polyneuropathy, unspecified; I48.91 Unspecified atrial fibrillation; F41.8 Other specified anxiety disorders; Z87.442 Personal history of urinary calculi; Z98.84 Bariatric surgery status; Z90.49 Acquired absence of other specified parts of digestive tract
CPT/HCPCS: 36415; 36556; 71045; 71250; 74176; 80048; 80053; 81001; 81050; 82274; 82550; 82570; 82803; 83605; 83690; 83735; 83880; 84100; 84145; 84156; 84300; 84443; 84484; 85025; 85610; 85730; 87040; 87077; 87086; 87088; 87186; 87493; 87637; 93005; 96365; 96366; 96367; 96375; 99291; A9270; C1751; J2470; J2543; J3370; J3475; J3480; J7030; J7040; J7120

== ENCOUNTER 2024-05-03 08:24 | Outpatient (CLI) | payer MEDICARE, SELFPAY ==
--- NOTE | ~2024-05-03 | XR_ITS ---
EXAMINATION: XR abdomen/kub 1V DATE: 05/03/2024 08:48 INDICATION: Bladder stones. TECHNIQUE: A supine view of the abdomen on 3 radiographs was obtained. COMPARISON: CT abdomen and pelvis 11/07/2023 FINDINGS: There are no dilated loops of bowel. There are phleboliths in the pelvis. There are surgica l clips from ventral hernia repair. There are approximately 5 stones in right kidney measuring up to 11 mm. There is a 9 mm stone in left kidney. IMPRESSION: 1. Bilateral kidney stones. Reviewed, dictated and finalized at location A. INE CLOTHING REPLACER IMPRESSION: 1. Bilateral kidney stones.
--- OUTSIDE RECORDS SUMMARY | 2024-05-03 08:36 | XMS_ITS | Encounter Summary ---
Author Organization [facility] Address [address] [place] [address] Care Team Providers Care Professional Poker Player Name Role Phone Keith Love MD Primary Care Provider + Encounter Details Date Type Department Care Team (Late st Contact Info) Description 09/29/2006 Outpatient Historical [facility] Endocrinology & Diabetes Management 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
--- OUTSIDE RECORDS SUMMARY | 2024-05-03 08:36 | XMS_ITS | Clinical Summary ---
Author Organization [facility] Address [address], [place] [address] Care Team Providers Care Nuclear Security Officer Name Role Phone Dalton Schumacher MD Unavailable [phone] Orestes Hagen MD Primary Care Provider [phone] Allergies Active Allergy Reactions Criticality Noted Date Comments Ibuprofen Other (See comments) Low Reaction: GI Bleeding, Naproxen Other (See comments) Reaction: GI Bleeding, Nsaids (Non-Steroidal Anti-Inflammatory Drug) Stomach upset High Reaction: GI UPSET, , Reaction: GI UPSET, Medications traZODone (DESYREL) 50 mg tablet Take 2 tablets (100 mg total) by mouth nightly Active busPIRone (BUSPAR) 10 mg tabletIndications :Generalized Anxiety Disorder Take 1 tablet (10 mg total) by mouth 3 (three) times a day Active HYDROcodone-aceta minophen (NORCO) 7.5-325 mg per tabletIndications :Pain Take 1 tablet by mouth every 8 (eight) hours as needed for pain Active therapeutic multivitamin (THERA) tabletIndications :Vitamin Deficiency Prevention Take 1 tablet by mouth daily Active escitalopram (LEXAPRO) 20 mg tablet Take 1 tablet (20 mg total) by mouth daily Active metFORMIN (GLUCOPHAGE) 500 mg tablet Take 1 tablet (500 mg total) by mouth daily with breakfast Active finasteride (PROSCAR) 5 mg tablet Take 1 tablet (5 mg total) by mouth daily Active pregabalin (LYRICA) 75 mg capsule Take 1 capsule (75 mg total) by mouth 2 (two) times a day Per patient he takes once daily 3 Active tamsulosin (FLOMAX) 0.4 mg extended release capsule TAKE 1 CAPSULE BY MOUTH EVERYDAY AT BEDTIME 3 Active apixaban (ELIQUIS) 5 mg tablet Take 1 tablet (5 mg total) by mouth 2 (two) times a day 180 tablet 3 4 Active FeroSuL 325 mg (65 mg iron) tablet Take 1 tablet (325 mg total) by mouth daily 4 Active furosemide (LASIX) 40 mg tablet Take 1 tablet (40 mg total) by mouth every morning 90 tablet 3 4 Active spironolactone (ALDACTONE) 25 mg tablet Take 0.5 tablets (12.5 mg total) by mouth daily 90 tablet 3 4 Active cephalexin (KEFLEX) 250 mg capsule TAKE 1 CAPSULE BY MOUTH EVERY DAY. START AFTER COMPLETING AUGMENTIN. 4 Active Active Problems Problem Noted Date Diagnosed Date Chronic diastolic heart failure 09/01/2023 Assessment & Plan (03/31/2024 2:[address] MANAGER): Sx stable, euvolemic -- cont lasix 40 daily, olivia 12.5 Assessment & Plan (12/16/2023 3:56 PM CDT): Slightly fluid overloaded on exam but improving after recent hospitalization - cont lasix 40 daily, olivia 12.5 - check BMP, nt pro BNP today (labs good; K 4.5 so will continue olivia but can stop KCl) Assessment & Plan (09/01/2023 11:41 AM CDT): Sig edema 20 lb wt gain and dyspnea. Possibly related to testosterone which was started two months ago; discussed pros cons with patient and he hasn't had substantial benefit so he prefers to stop for now - continue lasix 40 daily for now - check echo Atrial fibrillation (CMS/HCC) 11/21/2021 Assessment & Plan (03/31/2024 2:[address] MANAGER): Paroxysmal AFib, clinically stable and in sinus rhythm today. - continue Eliquis 5 b.i.d. Assessment & Plan (12/16/2023 1:45 PM CDT): Paroxysmal AFib, clinically stable and in sinus rhythm today. - continue Eliquis 5 b.i.d. Assessment & Plan (09/01/2023 5:14 PM CDT): Paroxysmal AFib, clinically stable and in sinus rhythm today. - continue Eliquis 5 b.i.d. Assessment & Plan (02/04/2023 11:[address] MANAGER): Paroxysmal AFib, clinically stable and in sinus rhythm today. Had set up Watchman however this was canceled - continue Eliquis 5 b.i.d. Assessment & Plan (07/24/2022 11:00 PM CDT): Paroxysmal AFib, clinically stable and in sinus rhythm today. He is unable to afford Eliquis due to prohibitive co-pay. We had long discussion today about options including biting the bullet and continuing long-term anticoagulant therapy with Eliquis verses option of Watchman procedure. We discussed pros cons of each approach and he strongly wishes to proceed with Watchman which we will arrange. Chads Vasc is 3 for hypertension diabetes at age - continue Eliquis 5 b.i.d. - refer for Watchman Assessment & Plan (01/22/2022 11:55 AM CDT): Paroxysmal AFib and 1 episode of flutter. No documented evidence of recurrence since cardioversion over the summer. Continue Eliquis Assessment & Plan (11/21/2021 2:02 PM CDT): Patient has paroxysmal AFib. He had flutter in 2019 which did not recur until recently with fib following cardioversion. He is in normal sinus today but reports tachy palpitations and ongoing exertional fatigue despite normal LV function on echo. Will obtain event monitor to rule out that he is having paroxysmal atrial fibrillation in a recurrent fashion as cause of symptoms. - event monitor - continue Eliquis Morbid (severe) obesity due to excess calories 0 11/21/2021 Body mass index 40.0-44.9, adult ([facility]) 11/21 AMINA (obstructive sleep apnea) 11/21/2021 Assessment & Plan (07/24/2022 11:03 PM CDT): Doing well with improved sleep disordered breathing symptoms since initiating CPAP Assessment & Plan (11/21/2021 2:02 PM CDT): Patient has a history of AMINA and has a risk factors form moderate to severe AMINA as well as compatible symptoms. Will obtain home sleep study to check for this Anticoagulation management encounter 10/01/2019 Assessment & Plan (10/01/2019 5:17 PM CDT): The patient has a [id number] score of 2 (annualized risk of stroke 2%). I have therefore recommended that he remain anticoagulated thromboprophylaxis. Dyspnea on exertion 08/19/2019 Assessment & Plan (08/19/2019 1:26 PM CDT): On exam he does not seem to be in congestive heart failure. Will obtain proBNP and chest x-ray. Non-recurrent unilateral ing uinal hernia without obstruction or gangrene 10/08/2017 Overview (10/08/2017): Added automatically from request for surgery [id number] Essential hypertension 01/07/2017 Assessment & Plan (03/31/2024 2:[address] MANAGER): Adequate control - continue lasix 40 daily, olivia 12.5 Assessment & Plan (12/16/2023 1:45 PM CDT): Adequate control - continue lasix, olivia Assessment & Plan (09/01/2023 11:38 AM CDT): Adequate control continue lisinopril hydrochlorothiazide Assessment & Plan (02/04/2023 11:[address] MANAGER): Adequate control continue lisinopril hydrochlorothiazide Assessment & Plan (07/24/2022 11:00 PM CDT): Adequate control continue lisinopril hydrochlorothiazide Assessment & Plan (01/22/2022 11:55 AM CDT): Adequately controlled, continue hydrochlorothiazide and lisinopril Assessment & Plan (11/21/2021 2:01 PM CDT): Adequately controlled on current regimen which he will continue including hydrochlorothiazide and lisinopril Assessment & Plan (02/09/2021 9:[address] MANAGER): Blood pressure is normal on lisinopril hydrochlorothiazide 20/12.5 mg daily, which he should continue. Assessment & Plan (02/04/2020 9:[address] MANAGER): Blood pressure is adequately controlled on current regimen. No change was made. Assessment & Plan (08/19/2019 1:26 PM CDT): Blood pressure is adequately controlled on current regimen. No change was made. Assessment & Plan (01/29/2019 9:[address] MANAGER): Blood pressure is adequately controlled on current regimen. No change was made. Assessment & Plan (01/08/2018 10:43 AM CDT): Blood pressure is adequately controlled on current regimen. No change was made. Assessment & Plan (01/07/2017 10:06 AM CDT): Although his initial blood pressure was high on rechecking it is normal. No change was made in his medications. Morbid obesity with BMI of 45.0-49.9, adult ([facility]) 01/07/2017 Assessment & Plan (02/09/2021 9:[address] MANAGER): Continues to gain weight. He says that he eats very little. He is quite inactive. I hope that he has more energy with testosterone replacement. If so, weight may improve with this. Cephalalgia 11/14/2016 Arthritis 11/14/2016 Anxiety 10/03/2016 Cervicalgia 10/03/2016 RBBB 01/03/2015 Overview (06/28/2016): Right bundle branch block Assessment & Plan (08/19/2019 1:26 PM CDT): Longstanding right bundle branch block Bleeding gastrointestinal 12/24/2013 Morbid obesity 08/27/2010 Assessment & Plan (01/08/2018 10:44 AM CDT): Would benefit from weight loss. He is trying to be more active, and says that he is walking a total of 3 miles per day. Assessment & Plan (01/07/2017 10:07 AM CDT): Discussed his weight at length with him and his . He is going to begin walking and they are going to modify their diet. Resolved Problems Problem Noted Date Diagnosed Date Resolved Date Left inguinal hernia 10/08/2017 018 Gastric ulcer 12/24/2013 10/08/2017 Encounters Date Type Department Care Team Description 03/09/2024 10:[address]NAGER Office Visit [facility] Cardiology [address] [address] Dalton Schumacher MD Paroxysmal atrial fibrillation (CMS/HCC) (HCC) (Primary Dx); Chronic diastolic heart failure (HCC); Essential hypertension from Last 3 Months Immunizations Name Administration Dates Next Due Influenza, Trivalent, Preservative Free, Intramu scular 12/23/2015 Surgical History Surgery Date Site/Laterality Comments CHOLECYSTECTOMY Cholecystectomy TOTAL KNEE ARTHROPLASTY Bilateral Total Knee Replacement BACK SURGERY Back surgery VEIN LIGATION AND STRIPPING 03/24/2012 - 03/23/2013 Vein Stripping HERNIA REPAIR NERVE BLOCK Nerve Block - cevical facet injections, bilateral (Added by TW Conv) GASTRIC BYPASS 03/24/2010 - 03/23/2011 UMBILICAL HERNIA REPAIR N/A INGUINAL HERNIA REPAIR Right INGUINAL HERNIA REPAIR LITHOTRIPSY Medical History Medical History Date Comments Spinal stenosis Spinal Stenosis Depression Depression Gastric ulcer 12/24/2013 Hard to intubate history in 2010 with gastric bypass. Class 2A airway with partial view of glottis. Successful Bougie assisted intubation. Hypertension GERD (gastroesophageal reflux disease) Kidney stone History of transfusion Cataract Arthritis Obesity Atrial fibrillation (CMS/HCC) (HCC) Family History Medical History Relation Name Comments Stroke Father 2 Stroke; Heart attack Mother 2 Myocardial Infa rction; Relation Name Status Comments Father 1 Alive Father 2 Mother 1 Alive Mother 2 Social History Tobacco Use Types Packs/Day Years Used Date Smoking Tobacco: Never Smokeless Tobacco: Never Tobacco Cessation:Counseling Given: Not Answered Alcohol Use Standard Drinks/Week Comments No 0 (1 standard drink = 0.6 oz pur e alcohol) AUDIT-C Answer Date Recorded Q1: How often do you have a drink containing alc ohol? Monthly or less 10/02/2022 Average Number of Drinks Not on file 023 Frequency of Binge Drinking Not on file 09/21 Sex and Gender Information Value Date Recorded Sex Assigned at Not on file Legal Sex Male 2:[address] Gender Identity Not on file Sexual Orientation Not on file Obstetrics History Last Filed Vital Signs Vital Sign Reading Time Taken Comments Blood Pressure 128/68 03/09/2024 10:[address]NA[address] Pulse 53 03/09/2024 10:[address]NA[address] Temperature 36.3 C (97.4 F) 10/02/2022 9:00 AM CDT Respiratory Rate 17 10/22/2021 11:00 AM CDT Oxygen Saturation 93% 03/09/2024 10:[address]NA[address] Inhaled Oxygen Concentration - - Weight 146.5 kg (323 lb) 03/09/2024 10:[address]NA[address] Height 180.3 cm (5' 11 ) 03/09/2024 10:[address]NAGER Body Mass Index 45.05 03/09/2024 10:[address]NAGER Plan of Treatment Health Maintenance Due Date Last Done Comments Depression Screening 1950 Hepatitis C Screening 1950 DTaP/Tdap/Td Vaccine (1 - Tdap) 06/24/1959 Hepatitis B Screening 1966 Well Visit 65+ 2013 Zoster Vaccine (3 of 3) 02/07/2018 12/13/2017, 05/07 Pneumococcal vaccine 65+ (2 of 2 - PPSV23 or PCV20) 03/12/2018 01/15/2018, 12/22/2013 Fall Risk Assessment 10/22/2022 10/22/2021 Colon Cancer Screening-Colonoscopy 05/04/2023 05/04/2013, 12/21/2012 Influenza Vaccine (#1) 2023 8, 05/07/2017, 12/23/2015, Additional history exists Colon Cancer Screening-CT Colonography Discontinued 05/04/2013, 12/21/2012 Colon Cancer Screening-DNA Stool Discontinued 05/04/19 14, 12/21/2012 Colon Cancer Screening-FIT Discontinued 05/04/2013, Colon Cancer Screening-Sigmoidoscopy Discontinued 05/04/2013, 12/21/2012 Medical Devices Implanted Type Area Legal Financial Specialist Device Identifier Shelf Expiration Date Model / Serial / Lot Mesh Surg Prolene 4 15/16inx2 5/32inx.5in 3 15/16in .75in - [id number] Implanted:Qty: 1 on 10/10/2017 by Kin Del Angel MD at [facility] Left: Inguinal Ethicon Endo Surgery 03/23/2022 [id number] / / [id number] Procedures Procedure Name Priority Date/Time Associated Diagnosis Comments COLONOSCOPY REPORT 05/04/2013 from Last 3 Months or Most Recently Relevant to Health Maintenance Results * COLONOSCOPY REPORT (05/04/2013) Anatomical Region Laterality Modality Other Narrative 05/04/2013 Ordered by an unspecified provider. Historical Provider GI PROCEDURE ORDERABLES F inal Result from Last 3 Months or Most Recently Relevant to Health Maintenance Insurance [facility] MEDICARE SUPPLEMENT INSURANCE MEDICARE MEDICARE [facility] [facility] MED[employer]ARE SUPPLEMENT INSURANCE MEDICARE [facility] [facility] MEDICARE SUPPLEMENT INSURANCE Care Teams Nuclear Security Officer Relationship Specialty Start Date End Date Orestes Hagen MD [address] [place] [address] PCP - General Family Practice 10/02/22 Dalton Schumacher MD [address] [place] [address] Consulting Physician Cardiovascular Disease 10/22/21
--- OUTSIDE RECORDS SUMMARY | 2024-05-03 08:36 | XMS_ITS | Encounter Summary ---
Author Organization [facility] Address [address] [place] [address] Care Team Providers Care Delivery Driver Assistant Name Role Phone Keith Love MD Primary Care Provider + Encounter Details Date Type Department Care Team (Late st Contact Info) Description 03/25/2007 Outpatient Historical [facility] Endocrinology & Diabetes Management 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
--- OUTSIDE RECORDS SUMMARY | 2024-05-03 08:36 | XMS_ITS | Encounter Summary ---
Author Organization [facility] Address [address] [place] [address] Care Team Providers Care Telephone Lineworker Name Role Phone Keith Love MD Primary Care Provider + Encounter Details Date Type Department Care Team (Late st Contact Info) Description 12/16/2006 Outpatient Historical [facility] Endocrinology & Diabetes Management [address] [place] [address] Kimberlyn Estrada MD [address] [place] [address] Social History Tobacco Use Types Packs/Day Years Used Date Smoking Tobacco: Never Assessed Sex and Gender Information Value Date Recorded Sex Assigned at Not on file Legal Sex Male 2:49 AM DELIVERY RN Gender Identity Not on file Sexual Orientation Not on file documented as of this encounter Plan of Treatment Not on file documented as of this encounter Visit Diagnoses Not on filedocumented in this encounter Care Teams Telephone Lineworker Relationship Specialty Start Date End Date Keith Love MD PCP - General 09/17/07 documented as of this encounter
--- OUTSIDE RECORDS SUMMARY | 2024-05-03 08:36 | XMS_ITS | Referral Summary ---
Author Organization [facility] Address [address] [place] [address] Care Team Providers Care Android Developer Name Role Phone Dalton Schumacher MD Unavailable Orestes Hagen MD Primary Care Provider [phone] Encounters Date Type Department Care Team Description 03/09/2024 10:00 AM MACHINE FILLER SERVICER Office Visit [facility] Cardiology [address] [address] Dalton Schumacher MD Paroxysmal atrial fibrillation (CMS/HCC) (HCC) (Primary Dx); Chronic diastolic heart failure (HCC); Essential hypertension from Last 3 Months Allergies Active Allergy Reactions Criticality Noted Date [...] 09/01/2023 Assessment & Plan (03/31/2024 2:49 PM MACHINE FILLER SERVICER): Sx stable, euvolemic -- cont lasix 40 [...] 11/21/2021 Assessment & Plan (03/31/2024 2:48 PM MACHINE FILLER SERVICER): Paroxysmal AFib, clinically stable and in sinus rhythm today. - continue Eliquis 5 b.i.d. Assessment & Plan (12/16/2023 1:45 PM CDT): Paroxysmal AFib, clinically stable and in sinus rhythm today. - continue Eliquis 5 b.i.d. Assessment & Plan (09/01/2023 5:14 PM CDT): Paroxysmal AFib, clinically stable and in sinus rhythm today. - continue Eliquis 5 b.i.d. Assessment & Plan (02/04/2023 11:31 AM MACHINE FILLER SERVICER): Paroxysmal AFib, clinically stable and in sinus [...] 0 11/21/2021 Body mass index 40.0-44.9, adult ([facility]) 11/21 AMINA (obstructive sleep apnea) 11/21/2021 Assessment [...] 5:17 PM CDT): The patient has a [id number] score of 2 (annualized risk of stroke [...] (10/08/2017): Added automatically from request for surgery [id number] Essential hypertension 01/07/2017 Assessment & Plan (03/31/2024 2:48 PM MACHINE FILLER SERVICER): Adequate control - continue lasix 40 daily, olivia 12.5 Assessment & Plan (12/16/2023 1:45 PM CDT): Adequate control - continue lasix, olivia Assessment & Plan (09/01/2023 11:38 AM CDT): Adequate control continue lisinopril hydrochlorothiazide Assessment & Plan (02/04/2023 11:30 AM MACHINE FILLER SERVICER): Adequate control continue lisinopril hydrochlorothiazide Assessment & Plan (07/24/2022 11:00 PM CDT): Adequate control continue lisinopril hydrochlorothiazide Assessment & Plan (01/22/2022 11:55 AM CDT): Adequately controlled, continue hydrochlorothiazide and lisinopril Assessment & Plan (11/21/2021 2:01 PM CDT): Adequately controlled on current regimen which he will continue including hydrochlorothiazide and lisinopril Assessment & Plan (02/09/2021 9:18 AM MACHINE FILLER SERVICER): Blood pressure is normal on lisinopril hydrochlorothiazide 20/12.5 mg daily, which he should continue. Assessment & Plan (02/04/2020 9:36 AM MACHINE FILLER SERVICER): Blood pressure is adequately controlled on current regimen. No change was made. Assessment & Plan (08/19/2019 1:26 PM CDT): Blood pressure is adequately controlled on current regimen. No change was made. Assessment & Plan (01/29/2019 9:42 AM MACHINE FILLER SERVICER): Blood pressure is adequately controlled on current [...] Morbid obesity with BMI of 45.0-49.9, adult ([facility]) 01/07/2017 Assessment & Plan (02/09/2021 9:20 AM MACHINE FILLER SERVICER): Continues to gain weight. He says that [...] hernia 10/08/2017 018 Gastric ulcer 12/24/2013 10/08/2017 Immunizations Name Administration Dates Next Due Influenza, Trivalent, Preservative Free, Intramu scular 12/23/2015 Social History Tobacco Use Types Packs/Day Years [...] on file Legal Sex Male 2:58 AM MACHINE FILLER SERVICER Gender Identity Not on file Sexual Orientation Not on file Last Filed Vital Signs Vital Sign Reading Time Taken Comments Blood Pressure 128/68 03/09/2024 10:10 AM MACHINE FILLER SERVICER Pulse 53 03/09/2024 10:10 AM MACHINE FILLER SERVICER Temperature 36.3 C (97.4 F) 10/02/2022 9:00 AM CDT Respiratory Rate 17 10/22/2021 11:00 AM CDT Oxygen Saturation 93% 03/09/2024 10:10 AM MACHINE FILLER SERVICER Inhaled Oxygen Concentration - - Weight 146.5 kg (323 lb) 03/09/2024 10:10 AM MACHINE FILLER SERVICER Height 180.3 cm (5' 11 ) 03/09/2024 10:10 AM MACHINE FILLER SERVICER Body Mass Index 45.05 03/09/2024 10:10 AM MACHINE FILLER SERVICER Plan of Treatment Not on file Medical Devices Implanted Type Area Framing Specialist Device Identifier Shelf Expiration Date Model / Serial / Lot Mesh Surg Prolene 4 15/16inx2 5/32inx.5in 3 15/16in .75in - [id number] Implanted:Qty: 1 on 10/10/2017 by Kin Del Angel MD at [facility] Left: Inguinal Ethicon Endo Surgery [facility] [id number] Procedures Procedure Name Priority Date/Time Associated Diagnosis Comments COLONOSCOPY REPORT 05/04/2013 from Last 3 Months or Most Recently Relevant to Health Maintenance Results * COLONOSCOPY REPORT (05/04/2013) Anatomical Region Laterality Modality Other Narrative 05/04/2013 Ordered by an unspecified provider. us Historical Provider GI PROCEDURE ORDERABLES F inal Result from Last 3 Months or Most Recently Relevant to Health Maintenance Insurance [employer] MEDICARE SUPPLEMENT INSURANCE Member Subscriber Plan / Payer (Ef fective 2017-Present) Name:Cheikh Ross Relation to Subscriber:Self Name:CitlaliCheikh vital Payer ID:[id number] (NAIC) Group ID:Not on file Type:COMMERCIAL Address: [place] [address] [address] MEDICARE MEDICARE [facility] MEDICARE SUPPLEMENT INSURANCE MEDICARE [facility] [facility] MEDICARE SUPPLEMENT INSURANCE Member Subscriber Plan / Payer (Ef fective 2017-Present) Name:Cheikh Ross Rony Relation to Subscriber:Self Name:CitlaliCheikh vital Payer ID:[id number] (NAIC) Group ID:Not on file Type:[facility] Address: [facility] [address] [address] Care Teams Android Developer Relationship Specialty Start Date End Date Orestes Hagen MD [address] [place] [address] PCP - General Family Practice 10/02/22 Dalton Schumacher MD [address] [place] [address] Consulting Physician Cardiovascular Disease 10/22/21
--- OUTSIDE RECORDS SUMMARY | 2024-05-03 08:36 | XMS_ITS | Encounter Summary ---
Author Organization [email or web address] Address [address] [place] [address] Care Team Providers Care Training Engineer Name Role Phone Keith Love MD Primary Care Provider + Encounter Details Date Type Department Care Team (Late st Contact Info) Description 11/11/2006 Outpatient Historical [facility] Endocrinology & Diabetes Management 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
--- OUTSIDE RECORDS SUMMARY | 2024-05-03 08:36 | XMS_ITS | Clinical Summary ---
Author Organization [facility] Address [address] [place] [id number] Care Team Providers Care Seismology Technical Officer Name Role Phone Keith Love MD Primary Care Provider [phone] Family History Medical History Relation Comments CEREBROVASCULAR ACCIDENT Father CAD Mother OR Mother Stroke Mother Relation Status Comments Father Mother Social History Tobacco Use Types Packs/Day Years Used Date Smoking Tobacco: Never Alcohol Use Standard Drinks/Week Comments Yes 0 (1 standard drink = 0.6 oz pur e alcohol) SOCIALLY Sex and Gender Information Value Date Recorded Sex Assigned at Not on file Legal Sex Male 8:21 PM CDT Gender Identity Not on file Sexual Orientation Not on file Plan of Treatment Health Maintenance Due Date Last Done Comments Colorectal Cancer Screening Colonoscopy (10 Years) 1948 Hepatitis C 1966 DTaP, Tdap and Td Vaccines ( 1 - Tdap) 06/24/1967 Zoster Vaccines (1 of 2) 1998 Pneumococcal Vaccine: 65+ Ye ars (1 of 1 - PCV) 2013 RSV Immunization or 60+ Years (1 - 1-dose 75+ series) 06/24/2023 COVID-19 Vaccine ( - 2023-2 5 season) 2023 Influenza Adult (#1) 2023 Meningococcal B Vaccine Aged Out No l onger eligible based on patient's age to complete this topic Meningococcal Vaccine Aged Out No evonne ijeoma eligible based on patient's age to complete this topic RSV Immunizations Under 20 Months Aged Out No longer eligible based on patient's age to complete this topic Care Teams Seismology Technical Officer Relationship Specialty Start Date End Date Keith Love MD PCP - General 01/09/16
--- OUTSIDE RECORDS SUMMARY | 2024-05-03 08:36 | XMS_ITS | Clinical Summary ---
Author Organization [facility] Address [address] [place] [address] Phone Care Team Providers Care Frame Builder Name Role Phone Keith Love MD Primary Care Provider + Allergies No known active allergies Medications CYMBALTA 60 mg Oral CpDR Take 90 mg by mouth daily. Active DILTIAZEM MALATE PO Take 360 mg by mouth daily. Active CRESTOR 20 mg Oral Tab Take 20 mg by mouth daily at bedtime. Active QUINAPRIL 40 mg Oral Tab Take 40 mg by mouth daily. Active METFORMIN 500 mg Oral Tab Take 500 mg by mouth 2 times daily with meals. Active AMBIEN CR 12.5 mg Oral TbMP Take 12.5 mg by mouth nightly as needed for Insomnia. Active BYETTA 10 mcg/0.04 mL subCUT PnIj Inject 10 mcg by subcutaneous injection 2 times daily before meals. Active INDAPAMIDE 2.5 mg Oral Tab Take 2.5 mg by mouth daily orchid transplanter. Active VITAMIN D 50,000 unit Oral Cap Take 50,000 Units by mouth daily. Active MULTI-VIT 55 PLUS PO Take 1 mg by mouth daily. Active ergocalciferol (VITAMIN D) 50,000 unit Oral Cap Take 1 Cap by mouth daily. 3 Cap 4 9 Active TRAMADOL HCL (TRAMADOL SR 24 HOUR) 100 mg Oral Tb24 Take 1 Tab by mouth daily. 90 Tab 1 9 Active Family History Medical History Relation Name Comments Diabetes Brother 1 Other Brother 2 Stroke Father Heart Disease Mother Other Sister Healthy Son 1 High Cholesterol Son 1 Hypertension Son 1 Healthy Son 2 Relation Name Status Comments Brother 1 Alive Brother 2 Alive Father Mother Sister Son 1 Alive Son 2 Alive Social History Tobacco Use Types Packs/Day Years Used Date Smoking Tobacco: Never Alcohol Use Standard Drinks/Week Comments No 0 (1 standard drink = 0.6 oz pur e alcohol) Sex and Gender Information Value Date Recorded Sex Assigned at Not on file Legal Sex Male 2:49 AM FUNERAL HOME MANAGER Gender Identity Not on file Sexual Orientation Not on file Last Filed Vital Signs Vital Sign Reading Time Taken Comments Blood Pressure 132/82 05/19/2008 12:07 PM FUNERAL HOME MANAGER Pulse 68 05/19/2008 12:07 PM FUNERAL HOME MANAGER Temperature - - Respiratory Rate - - Oxygen Saturation - - Inhaled Oxygen Concentration - - Weight 145.2 kg (320 lb) 05/19/2008 12:07 PM FUNERAL HOME MANAGER Height 182.9 cm (6') 05/19/2008 12:07 PM FUNERAL HOME MANAGER Body Mass Index 43.4 05/19/2008 12:07 PM FUNERAL HOME MANAGER Plan of Treatment Health Maintenance Due Date Last Done Comments DTAP/TDAP/TD VACCINES (1 - Tdap) 06/24/1967 COLORECTAL SCREENING 1993 Colorectal Cancer Screening 1993 FIT-DNA Q 3 years 1993 FIT/FOBT Q 1 year 1993 Flex Sig/CT Colonography Q 5 years 1993 PNEUMOCOCCAL VACCINE 65+ YEARS (1 of 1 - PCV) 06/23/18 99 ZOSTER VACCINE (1 of 2) 1998 RSV VACCINE (60+ or ) (1 - 1-dose 75+ series) 06/24/2023 INFLUENZA VACCINE (#1) 2023 Insurance [facility] BLUE ACCESS/TRUE BLUE PPO Care Teams Frame Builder Relationship Specialty Start Date End Date Keith Love MD PCP - General 09/17/07
--- OUTSIDE RECORDS SUMMARY | 2024-05-03 08:36 | XMS_ITS | Encounter Summary ---
Author Organization [facility] Address [address] [place] [address] Care Team Providers Care Mail Teller Name Role Phone Keith Love MD Primary Care Provider + Encounter Details Date Type Department Care Team (Late st Contact Info) Description 01/13/2007 Outpatient Historical [facility] Endocrinology & Diabetes Management 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
--- OUTSIDE RECORDS SUMMARY | 2024-05-03 08:36 | XMS_ITS | Continuity of Care Document ---
Author Organization [facility] Address [address] [place] [address] Phone Care Team Providers Care Cvt Tech Name Role Phone Marcelo Dawn MD Unavailable Unavailable Procedures Procedure Date Work/medical disability examination [facility] Advance Directives Directive Yes / No Effective Date File Name No Information Encounters Encounter Description Practice Location Reason(s) For Visit Diagnoses Date Provider Providers Copied on Encounter Work/medical disability examination [facility], [address], [id number], tel:[phone] [facility] M Nereyda Robertson. [address] [place] [address], [place], [place], [id number], . tel:[phone] Family History Family Member Type Diagnosis Age At Onset No Information Payers Payer name Insurance type Covered republican ID Authoriza tion(s) No Information Social History Type Description Quantity Date Captured Comments Sex Male Smoking Status No Information Chief Complaint And Reason For Visit No Information Reason For Referral Reason For Referral No Information History Of Present Illness Encounter Date Complaint History Of Prese nt Illness No Information Functional Status Date Functional Assessmen t No Information Instructions Date Instruction Additional Infor mation No Information Assessments Type Assessment Date No Information Patient Care Teams Name Effective Dates (start - stop) Status Members No Information
--- OUTSIDE RECORDS SUMMARY | 2024-05-03 08:36 | XMS_ITS | Encounter Summary ---
Author Organization [facility] Address [address] [place] [address] Care Team Providers Care Repairing Calibrator Name Role Phone Keith Love MD Primary Care Provider + Encounter Details Date Type Department Care Team (Late st Contact Info) Description 06/19/2006 Outpatient Historical [facility] Endocrinology & Diabetes Management [address] [place] [address] Kimberlyn Estrada MD [address] [place] [address] Social History Tobacco Use Types Packs/Day Years Used Date Smoking Tobacco: Never Assessed Sex and Gender Information Value Date Recorded Sex Assigned at Not on file Legal Sex Male 2:49 AM BLOOD DONOR RECRUITER Gender Identity Not on file Sexual Orientation Not on file documented as of this encounter Plan of Treatment Not on file documented as of this encounter Visit Diagnoses Not on filedocumented in this encounter Care Teams Repairing Calibrator Relationship Specialty Start Date End Date Keith Love MD PCP - General 09/17/07 documented as of this encounter
--- OUTSIDE RECORDS SUMMARY | 2024-05-03 08:36 | XMS_ITS | Encounter Summary ---
Author Organization [facility] Address [address] [place] [address] Care Team Providers Care Computer Hardware Engineer Name Role Phone Keith Love MD Primary Care Provider + Encounter Details Date Type Department Care Team (Late st Contact Info) Description 03/26/2007 Outpatient Historical [facility] Endocrinology & Diabetes Management 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
== END 2024-05-03 08:25 | disposition home or self-care (01) ==
PROVIDERS: PCP Family Medicine; Visit Provider Urology
DX: N20.0 Calculus of kidney (principal)
CPT/HCPCS: 74018

== ENCOUNTER 2024-10-20 00:36 | Day surgery (SDC) | payer MEDICARE, SELFPAY ==
[2024-10-08 15:16] VITALS: BMI 44.6
--- NOTE | 2024-10-14 15:58 | PC.NURSE ---
Spoke with patient regarding medication ELIQUIS. PATIENT verbalizes understanding that the last dose is to be taken on 10/17/2024 and the Endoscopist will instruct them when to restart after the procedure.
--- OUTSIDE RECORDS SUMMARY | 2024-10-20 00:38 | XMS_ITS | Clinical Summary ---
Author Organization [facility] Address [address] [address] Care Team Providers Care Boat Assembler Name Role Phone Dalton Schumacher MD Unavailable [phone] Orestes Hagen MD Primary Care Provider [phone] Allergies Active Allergy Reactions Criticality Noted Date [...] BY MOUTH EVERYDAY AT BEDTIME 3 Active FeroSuL 325 mg (65 mg iron) [...] DAY. START AFTER COMPLETING AUGMENTIN. 4 Active apixaban (ELIQUIS) 5 mg tablet Take 1 tablet (5 mg total) by mouth 2 (two) times a day 180 tablet 3 5 Active Active Problems Problem Noted Date Diagnosed Date Leg swelling 10/11/2024 Assessment & Plan (10/11/2024 12:46 PM CDT): Concern for cardiac etiology given history of diastolic HFpEF - will check echo and ProBNP. Instructed to increase Lasix x3 days. There may also be a component of chronic venous insufficiency/dependent edema. Patient instructed to utilize compression socks, elevate legs while at rest Chronic diastolic heart failure 09/01/2023 Assessment & Plan (10/11/2024 12:46 PM CDT): Increased leg edema and exertional dyspnea, previously alleviated with increased Lasix. Patient instructed to increase his Lasix to 40 mg b.i.d. for 3 days, then return to 40 mg once daily. We will obtain repeat echocardiogram and lab work today. Continue spironolactone. May consider addition of SGLT2 inhibitor in the future, will await lab/echo findings. Assessment & Plan (03/31/2024 2:49 PM TRAFFIC ENGINEER): Sx stable, euvolemic -- cont lasix 40 [...] for now - check echo Atrial fibrillation 11/21/2021 Assessment & Plan (10/11/2024 12:42 PM CDT): Monitor/notify the office for recurrent palpitations or tachycardia CHADS2-Zackary = 5 (age, CHF, HTN, DM) - continue Eliquis. Assessment & Plan (03/31/2024 2:48 PM TRAFFIC ENGINEER): Paroxysmal AFib, clinically stable and in sinus rhythm today. - continue Eliquis 5 b.i.d. Assessment & Plan (12/16/2023 1:45 PM CDT): Paroxysmal AFib, clinically stable and in sinus rhythm today. - continue Eliquis 5 b.i.d. Assessment & Plan (09/01/2023 5:14 PM CDT): Paroxysmal AFib, clinically stable and in sinus rhythm today. - continue Eliquis 5 b.i.d. Assessment & Plan (02/04/2023 11:31 AM TRAFFIC ENGINEER): Paroxysmal AFib, clinically stable and in sinus [...] 0 11/21/2021 Body mass index 40.0-44.9, adult ([facility]) 11/21 AMINA (obstructive sleep apnea) 11/21/2021 Assessment [...] 5:17 PM CDT): The patient has a CQI9XQ5-TZGo score of 2 (annualized risk of stroke [...] (10/08/2017): Added automatically from request for surgery [id number] Essential hypertension 01/07/2017 Assessment & Plan (10/11/2024 12:44 PM CDT): Blood pressure stable. Continue spironolactone and Lasix. Assessment & Plan (03/31/2024 2:48 PM TRAFFIC ENGINEER): Adequate control - continue lasix 40 daily, olivia 12.5 Assessment & Plan (12/16/2023 1:45 PM CDT): Adequate control - continue lasix, olivia Assessment & Plan (09/01/2023 11:38 AM CDT): Adequate control continue lisinopril hydrochlorothiazide Assessment & Plan (02/04/2023 11:30 AM TRAFFIC ENGINEER): Adequate control continue lisinopril hydrochlorothiazide Assessment & Plan (07/24/2022 11:00 PM CDT): Adequate control continue lisinopril hydrochlorothiazide Assessment & Plan (01/22/2022 11:55 AM CDT): Adequately controlled, continue hydrochlorothiazide and lisinopril Assessment & Plan (11/21/2021 2:01 PM CDT): Adequately controlled on current regimen which he will continue including hydrochlorothiazide and lisinopril Assessment & Plan (02/09/2021 9:18 AM TRAFFIC ENGINEER): Blood pressure is normal on lisinopril hydrochlorothiazide 20/12.5 mg daily, which he should continue. Assessment & Plan (02/04/2020 9:36 AM TRAFFIC ENGINEER): Blood pressure is adequately controlled on current regimen. No change was made. Assessment & Plan (08/19/2019 1:26 PM CDT): Blood pressure is adequately controlled on current regimen. No change was made. Assessment & Plan (01/29/2019 9:42 AM TRAFFIC ENGINEER): Blood pressure is adequately controlled on current [...] Morbid obesity with BMI of 45.0-49.9, adult ([facility]) 01/07/2017 Assessment & Plan (10/11/2024 12:42 PM CDT): Likely a component to his exertional symptoms, though will check echocardiogram and lab work today to rule out cardiac etiology Assessment & Plan (02/09/2021 9:20 AM TRAFFIC ENGINEER): Continues to gain weight. He says that [...] Encounters Date Type Department Care Team Description 10/12/2024 Telephone [facility] [address] [place] [phone] Dalton Schumacher MD 10/12/2024 Telephone [facility] [address] [place] [phone] Marilu Moreira NP 10/11/2024 10:00 AM CDT Lab [facility] Outpatient Lab [address] [place] [address] Chronic diastolic heart failure (HCC); Leg swelling 10/11/2024 9:30 AM CDT Office Visit [facility] [address] [place] [phone] Marilu Moreira, BARBARA Chronic diastolic heart failure (HCC) (Primary Dx); Leg swelling; Paroxysmal atrial fibrillation (HCC); Essential hypertension; Morbid obesity with BMI of 45.0-49.9, adult (CMS/HCC) (HCC) 10/11/2024 Results Follow-Up [facility] [address] [place] [phone] Marilu Moreira, POUNCER MACHINE Pro B-type natriuretic peptide, Basic metabolic panel, eGFR from Last 3 Months Immunizations Immunization Administration Dates Next Due Influenza, Trivalent, Preservative [...] of transfusion Cataract Arthritis Obesity Atrial fibrillation (HCC) Family History Medical History Relation Name [...] on file Legal Sex Male 2:58 AM TRAFFIC ENGINEER Gender Identity Not on file Sexual Orientation Not on file Obstetrics History Last Filed Vital Signs Vital Sign Reading Time Taken Comments Blood Pressure 130/78 10/11/2024 8:43 AM CDT Pulse 67 10/11/2024 8:43 AM CDT Temperature 36.3 C (97.4 F) 10/02/2022 9:00 AM CDT Respiratory Rate 17 10/22/2021 11:00 AM CDT Oxygen Saturation 93% 10/11/2024 8:43 AM CDT Inhaled Oxygen Concentration - - Weight 150.1 kg (331 lb) 10/11/2024 8:43 AM CDT Height 180.3 cm (5' 11) 10/11/2024 8:43 AM CDT Body Mass Index 46.17 10/11/2024 8:43 AM CDT Plan of Treatment Health Maintenance Due Date Last Done Comments Depression Screening 1950 Hepatitis C Screening 1950 DTaP/Tdap/Td Vaccine (1 - Tdap) 06/24/1959 Hepatitis B Screening 1966 Well Visit 65+ 2013 Zoster Vaccine (3 of 3) 02/07/2018 12/13/2017, 05/07 Pneumococcal vaccine 65+ (2 of 2 - PPSV23) 03/12/2018 01/15/2018, 12/22/2013 Fall Risk Assessment 10/22/2022 10/22/2021 Influenza Vaccine (#1) 2024 8, 05/07/2017, 12/23/2015, Additional history exists Colon Cancer Screening-CT Colonography Discontinued 05/04/2013, 12/21/2012 Colon Cancer Screening-Colonoscopy Discontinued 05/04/2013, 12/21/2012 Colon Cancer Screening-DNA Stool Discontinued 05/04/19 14, 12/21/2012 Colon Cancer Screening-FIT Discontinued 05/04/2013, Colon Cancer Screening-FOBT Discontinued 05/04/2013, 0 12/21/2012 Colon Cancer Screening-Sigmoidoscopy Discontinued 05/04/2013, 12/21/2012 Colorectal Cancer Screening Discontinued Medical Devices Implanted Type Area Lot Worker Device Identifier Shelf Expiration Date Model / Serial / Lot Mesh Surg Prolene 4 15/16inx2 5/32inx.5in 3 15/16in .75in - [id number] Implanted:Qty: 1 on 10/10/2017 by Kin Del Angel MD at [facility] Left: Inguinal Ethicon Endo Surgery 03/23/2022 [id number] / / [id number] Procedures Procedure Name Priority Date/Time Associated Diagnosis Comments EGFR Routine 10/11/2024 10:21 AM CDT Chronic diastolic heart failure (HCC) Leg swelling BASIC METABOLIC PANEL Routine 10/11/2024 10:21 AM CDT Chronic diastolic heart failure (HCC) Leg swelling PRO B-TYPE NATRIURETIC PEPTIDE Routine 10/11/2024 10:21 AM CDT Chronic diastolic heart failure (HCC) Leg swelling COLONOSCOPY REPORT 05/04/2013 from Last 3 Months or Most Recently Relevant to Health Maintenance Results * eGFR (10/11/2024 10:21 AM CDT) eGFR 60 >=60 mL/min/1. 73 m2 Comment: Interpretive Data Reference Interval Normal >/= 90 mL/min/1.73m2 Mildly decreased* 60 - 89 mL/min/1.73m2 Mildly to moderately decreased 45 - 59 mL/min/1.73m2 Moderately to severely decreased 30 - 44 mL/min/1.73m2 Severely decreased 15 - 29 mL/min/1.73m2 Kidney Failure < 15 mL/min/1.73m2 *Relative to young adult level Estimated glomerular filtration rate is determined by the 2020 CKD-EPI equation recommended by the National Kidney Foundation (A Unifying Approach to GFR Estimation: Recommendations of the NKF-ASK Task Force on Reassessing the Inclusion of Race in Diagnosing Kidney Disease, JASN 2020). The CKD-EPI equation should not be used for patients with unstable renal function and has not been validated in children and those over 70. Current interpretive data was last reviewed 2021. Blood 10/11/2024 10:2 1 AM CDT 10/11/2024 10:21 AM CDT us Marilu Moreira NP LAB BLOOD ORDERABLES Final R esult [facility] [address] Department [place] [address] * Pro B-type natriuretic peptide (10/11/2024 10:21 AM CDT) NT-proBNP 99 <=450 pg/mL Comment: Interpretive Comments: A. Dyspnea in Acute Care Setting All Ages: < 300 pg/ml, acute heart failure unlikely. < 50 yrs: 300 - 450 pg/ml, further investigation warranted. > 450 pg/ml, acute heart failure likely. 50 - 74 yrs: 300 - 900 pg/ml, further investigation warranted. > 900 pg/ml, acute heart failure likely . > or = 75 yrs: 450 - 1800 pg/ml, further investigation warranted. > 1800 pg/ml, acute heart failure likely. B. Non-acute Setting < 75 yrs < 125 pg/ml, rules out heart failure. > or = 125 pg/ml, further investigation warranted. > or = 75 yrs < 450 pg/ml, rules out heart failure. > or = 450 pg/ml, further investigation warranted. - Knowledge of each individual patient's NT-proBNP range may be more useful than using similar cut-points for every patient. Please note that marked elevations in NT-proBNP levels may be observed in state other than Left Ventricular Congestive Failure, including: acute coronary syndromes, right heart strain/failure (including pulmonary embolism and cor pulmonale), critical illness, renal failure, as well as advanced age. - References: 1. Pawan YOUSSEF et.al. Eur Heart J. 2006:27:330-337. 2. Orlando RW, Eddie AM. J. AM Jeannie Cardiol: Cardiovasc Imag. 2009;2: 216- 225. Interpretive Data Last Revised Date: 2017. Blood 10/11/2024 10:2 1 AM CDT 10/11/2024 10:21 AM CDT Marilu Moreira POUNCER MACHINE LAB BLOOD ORDERABLES Final R esult [facility] [address] Department [place] [address] * (ABNORMAL) Basic metabolic panel (10/11/2024 10:21 AM CDT) Sodium 143 135 - 145 mmol/L Potassium, pl 3.4 3.3 - 4.9 mmol/L [facility] Chloride 101 97 - 110 mmol/L [facility] CO2 28 22 - 32 mmol/L [facility] Anion gap 14 2 - 15 mmol/L [facility] BUN 16 6 - 25 mg/dL [facility] Creatinine 1.24 0.80 - 1.30 mg/dL [facility] Glucose 90 70 - 199 mg/dL [facility] Comment: Interpretive Data Fasting glucose >/= 126 mg/dl is diagnostic for diabetes. Fasting is defined as no caloric intake for at least 8 hours. Fasting glucose between 100 mg/dl to 125 mg/dl is diagnostic of prediabetes. In a patient with classic symptoms of hyperglycemia or hyperglycemic crisis, a random glucose >/= 200 mg/dl is diagnostic for diabetes. In the absence of unequivocal hyperglycemia, results should be confirmed by repeat testing. The classification and Diagnosis of Diabetes Diabetes Care 202; 46: S19-S40. Current interpretive data was last revised 2022. Calcium 8.1(L) 8.5 - 10.3 mg/dL [facility] Blood 10/11/2024 10:2 1 AM CDT 10/11/2024 10:21 AM CDT Marilu Moreira NP LAB BLOOD ORDERABLES Final [facility] [address] Department [place] [address] * COLONOSCOPY REPORT (05/04/2013) Anatomical Region Laterality Modality Other Narrative 05/04/2013 Ordered by an unspecified provider. Historical Provider GI PROCEDURE ORDERABLES F inal Result from Last 3 Months or Most Recently Relevant to Health Maintenance Insurance [facility] MEDICARE SUPPLEMENT INSURANCE MEDICARE [facility] MEDICARE SUPPLEMENT INSURANCE [place] [id number] [facility] MEDICARE SUPPLEMENT INSURANCE Care Teams Boat Assembler Relationship Specialty Start Date End Date Orestes Hagen MD [address] [place] [address] PCP - General Family Practice 10/02/22 Dalton Schumacher MD [address] [place] [address] Consulting Physician Cardiovascular Disease 10/22/21
--- OUTSIDE RECORDS SUMMARY | 2024-10-20 00:38 | XMS_ITS | Patient Health Record ---
Author Organization [facility] Address [address] [place], [place] [address] Care Team Providers Care Furniture Mover Driver Name Role Phone FRANCISCO JUSTICE Unavailable [phone] Randal Piper Unavailable Unavailable Reason For Referral No Information Medications Medication SIG (Take, Route, Frequency, Duration) Notes Start Date End Date Status tramadol hydrochloride 50 MG Oral Tablet ORAL tramadol hydrochloride 50 MG Oral TabletOriginal Medicationtramadol hydrochloride 50 MG Oral Tablet *Reorder from [employer] Service Management for eRx and Interaction Alerts* 04/10/2015 Active zolpidem tartrate 5 MG Oral Tablet [Ambien] ORAL zolpidem tartrate 5 MG Oral Tablet [Ambien]Original Medicationzolpidem tartrate 5 MG Oral Tablet [Ambien] *Reorder from [employer] Service Management for eRx and Interaction Alerts* 04/10/2015 Active tamsulosin hydrochloride 0.4 MG Oral Capsule tamsulosin hydrochloride 0.4 MG Oral CapsuleOriginal Medicationtamsulosin hydrochloride 0.4 MG Oral Capsule *Reorder from [employer] Service Management for eRx and Interaction Alerts* 03/29/2022 Active Plan Of Treatment No Information Insurance Providers Payer Name Payer Address Payer Phone Subscriber Number Group Number Insured Name Patient Relationship to Insured Coverage Start Date Coverage End Date Medicare Part B [place] [address] [place] [address] [id number] CHEIKH RUBI Self - patient is the insured [employer] Medicare Supplemental Benefit Plans [id number] [address] [address] [place], [place] [phone] [id number] CHEIKH RUBI Self - patient is the insured
--- OUTSIDE RECORDS SUMMARY | 2024-10-20 00:38 | XMS_ITS | Referral Summary ---
Author Organization [facility] Address [address] [place] [address] Care Team Providers Care Integrated Campaign Manager Name Role Phone Dalton Schumacher MD Unavailable [phone] Orestes Hagen MD Primary Care Provider [phone] Encounters Date Type Department Care Team Description 10/12/2024 Telephone [facility] Cardiology [address] [place] [phone] Dalton Schumacher MD 10/12/2024 Telephone [facility] Cardiology [address] [place] [phone] Marilu Moreira NP 10/11/2024 Results Follow-Up [facility] Cardiology [address] [place] [phone] Marilu Moreira NP Pro B-type natriuretic peptide, Basic metabolic panel, eGFR 10/11/2024 10:00 AM CDT Lab [facility] Outpatient Lab [address] [place] [phone] Chronic diastolic heart failure (HCC); Leg swelling 10/11/2024 9:30 AM CDT Office Visit [facility] Cardiology [address] [place] [phone] Marilu Moreira NP Chronic diastolic heart failure (HCC) (Primary Dx); Leg swelling; Paroxysmal atrial fibrillation (HCC); Essential hypertension; Morbid obesity with BMI of 45.0-49.9, adult (CMS/HCC) (HCC) from Last 3 Months Allergies Active Allergy [...] findings. Assessment & Plan (03/31/2024 2:49 PM LAMP SHADE MAKER): Sx stable, euvolemic -- cont lasix 40 [...] Eliquis. Assessment & Plan (03/31/2024 2:48 PM LAMP SHADE MAKER): Paroxysmal AFib, clinically stable and in sinus rhythm today. - continue Eliquis 5 b.i.d. Assessment & Plan (12/16/2023 1:45 PM CDT): Paroxysmal AFib, clinically stable and in sinus rhythm today. - continue Eliquis 5 b.i.d. Assessment & Plan (09/01/2023 5:14 PM CDT): Paroxysmal AFib, clinically stable and in sinus rhythm today. - continue Eliquis 5 b.i.d. Assessment & Plan (02/04/2023 11:31 AM LAMP SHADE MAKER): Paroxysmal AFib, clinically stable and in sinus [...] 0 11/21/2021 Body mass index 40.0-44.9, adult ([facility]) 11/21 AMINA (obstructive sleep apnea) 11/21/2021 [...] 5:17 PM CDT): The patient has a [id number] score of 2 (annualized risk of stroke [...] (10/08/2017): Added automatically from request for surgery [id number] Essential hypertension 01/07/2017 Assessment & Plan (10/11/2024 12:44 PM CDT): Blood pressure stable. Continue spironolactone and Lasix. Assessment & Plan (03/31/2024 2:48 PM LAMP SHADE MAKER): Adequate control - continue lasix 40 daily, olivia 12.5 Assessment & Plan (12/16/2023 1:45 PM CDT): Adequate control - continue lasix, olivia Assessment & Plan (09/01/2023 11:38 AM CDT): Adequate control continue lisinopril hydrochlorothiazide Assessment & Plan (02/04/2023 11:30 AM LAMP SHADE MAKER): Adequate control continue lisinopril hydrochlorothiazide Assessment & Plan (07/24/2022 11:00 PM CDT): Adequate control continue lisinopril hydrochlorothiazide Assessment & Plan (01/22/2022 11:55 AM CDT): Adequately controlled, continue hydrochlorothiazide and lisinopril Assessment & Plan (11/21/2021 2:01 PM CDT): Adequately controlled on current regimen which he will continue including hydrochlorothiazide and lisinopril Assessment & Plan (02/09/2021 9:18 AM LAMP SHADE MAKER): Blood pressure is normal on lisinopril hydrochlorothiazide 20/12.5 mg daily, which he should continue. Assessment & Plan (02/04/2020 9:36 AM LAMP SHADE MAKER): Blood pressure is adequately controlled on current regimen. No change was made. Assessment & Plan (08/19/2019 1:26 PM CDT): Blood pressure is adequately controlled on current regimen. No change was made. Assessment & Plan (01/29/2019 9:42 AM LAMP SHADE MAKER): Blood pressure is adequately controlled on current [...] Morbid obesity with BMI of 45.0-49.9, adult ([facility]) 01/07/2017 Assessment & Plan (10/11/2024 12:42 PM CDT): Likely a component to his exertional symptoms, though will check echocardiogram and lab work today to rule out cardiac etiology Assessment & Plan (02/09/2021 9:20 AM LAMP SHADE MAKER): Continues to gain weight. He says that [...] 10/08/2017 018 Gastric ulcer 12/24/2013 10/08/2017 Immunizations Immunization Administration Dates Next Due Influenza, [...] on file Legal Sex Male 2:58 AM LAMP SHADE MAKER Gender Identity Not on file Sexual Orientation [...] 10/11/2024 8:43 AM CDT Plan of Treatment Not on file Medical Devices Implanted Type Area Certified Hearing Instrument Dispenser Device Identifier Shelf Expiration Date Model / Serial / Lot Mesh Surg Prolene 4 15/16inx2 5/32inx.5in 3 1516in .75in - [id number] Implanted:Qty: 1 on 10/10/2017 by Kin Del Angel MD at [facility] Left: Inguinal Ethicon Endo Surgery 03/23/2022 [facility] / / [id number] Procedures Procedure Name Priority Date/Time Associated Diagnosis [...] LAB BLOOD ORDERABLES Final R esult [facility] [address] Department of Laboratories [place], [place] [id number] * Pro B-type natriuretic peptide (10/11/2024 10:21 [...] well as advanced age. - References: 1. Paawn YOUSSEF et.al. Eur Heart J. 2006:27:330-337. 2. [place] WINTER, Edide OQUENDO. J. AM Jeannie Cardiol: Cardiovasc Imag. 2009;2: 216- 225. Interpretive Data Last Revised Date: 2017. Blood 10/11/2024 10:2 1 AM CDT 10/11/2024 10:21 AM CDT us Marilu Moreira NP LAB BLOOD ORDERABLES Final R esult [facility] [address] Department [place] [address] * (ABNORMAL) Basic metabolic panel (10/11/2024 10:21 AM CDT) Sodium 143 135 - 145 mmol/L Potassium, pl 3.4 3.3 - 4.9 mmol/L [facility] Chloride 101 97 - 110 mmol/L [facility] CO2 28 22 - 32 mmol/L [facility] Anion gap 14 2 - 15 mmol/L [facility] BUN 16 6 - 25 mg/dL [facility] Creatinine 1.24 0.80 - 1.30 mg/dL [facility] Glucose 90 70 - 199 mg/dL [facility] Comment: Interpretive Data Fasting glucose >/= 126 [...] classification and Diagnosis of Diabetes Diabetes Care 2021; 46: S19-S40. Current interpretive data was last revised 2022. Calcium 8.1(L) 8.5 - 10.3 mg/dL [facility] Blood 10/11/2024 10:2 1 AM CDT 10/11/2024 10:21 AM CDT Marilu Moreira NP LAB BLOOD ORDERABLES Final R esult [facility] [address] Department [place] [address] * COLONOSCOPY REPORT (05/04/2013) Anatomical Region Laterality Modality Other Narrative 05/04/2013 Ordered by an unspecified provider. Historical Provider GI PROCEDURE ORDERABLES F inal Result from Last 3 Months or Most Recently Relevant to Health Maintenance Insurance [facility] MEDICARE SUPPLEMENT INSURANCE MEDICARE MEDICARE [facility] MEDICARE SUPPLEMENT INSURANCE [place]OS [id number] MEDICARE [employer] MEDICARE SUPPLEMENT INSURANCE Care Teams Integrated Campaign Manager Relationship Specialty Start Date End Date Orestes Hagen MD [address] [place] [address] PCP - General Family Practice 10/02/22 Dalton Schumacher MD [address] [place] [address] Consulting Physician Cardiovascular Disease 10/22/21
--- OUTSIDE RECORDS SUMMARY | 2024-10-20 00:38 | XMS_ITS | Encounter Summary ---
Author Organization [facility] Address [address] [place] [address] Care Team Providers Care Permanent Mold Supervisor Name Role Phone Keith Love MD Primary Care Provider + Encounter Details Date Type Department Care Team (Late st Contact Info) Description 01/13/2007 Outpatient Historical [facility] Endocrinology & Diabetes Management [address] [place] [address] Kimberlyn Estrada MD [address] [place] [address] Social History Tobacco Use Types Packs/Day Years Used Date Smoking Tobacco: Never Assessed Sex and Gender Information Value Date Recorded Sex Assigned at Not on file Legal Sex Male 2:49 AM HEAD OF ADVERTISING Gender Identity Not on file Sexual Orientation Not on file documented as of this encounter Plan of Treatment Not on file documented as of this encounter Visit Diagnoses Not on filedocumented in this encounter Care Teams Permanent Mold Supervisor Relationship Specialty Start Date End Date Keith Love MD PCP - General 09/17/07 documented as of this encounter
--- OUTSIDE RECORDS SUMMARY | 2024-10-20 00:38 | XMS_ITS | Encounter Summary ---
Author Organization [facility] Address [address] [place] [address] Care Team Providers Care Business Objects Developer Name Role Phone Keith Love MD Primary Care Provider + Encounter Details Date Type Department Care Team (Late st Contact Info) Description 11/11/2006 Outpatient Historical [facility] Endocrinology & Diabetes Management 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
--- OUTSIDE RECORDS SUMMARY | 2024-10-20 00:38 | XMS_ITS | Encounter Summary ---
Author Organization [facility] Address [address] [place] [address] Care Team Providers Care Diesel Powerplant Supervisor Name Role Phone Keith Love MD Primary Care Provider + Encounter Details Date Type Department Care Team (Late st Contact Info) Description 12/16/[address] [facility] Endocrinology & Diabetes Management [address] [place] [address] Kimberlyn Estrada MD [address] [place] [address] Social History Tobacco Use Types Packs/Day Years Used Date Smoking Tobacco: Never Assessed Sex and Gender Information Value Date Recorded Sex Assigned at Not on file Legal Sex Male 2:49 AM ISOTOPE TECHNICIAN Gender Identity Not on file Sexual Orientation Not on file documented as of this encounter Plan of Treatment Not on file documented as of this encounter Visit Diagnoses Not on filedocumented in this encounter Care Teams Diesel Powerplant Supervisor Relationship Specialty Start Date End Date Keith Love MD PCP - General 09/17/07 documented as of this encounter
--- OUTSIDE RECORDS SUMMARY | 2024-10-20 00:38 | XMS_ITS | Clinical Summary ---
Author Organization [facility] Address [address] [place] [address] Phone Care Team Providers Care Reporter Anchor Name Role Phone Keith Love MD Primary [...] Tab Take 2.5 mg by mouth daily truck manager. Active VITAMIN D 50,000 unit Oral Cap [...] on file Legal Sex Male 2:49 AM ANALYTICS ANALYST Gender Identity Not on file Sexual Orientation Not on file Last Filed Vital Signs Vital Sign Reading Time Taken Comments Blood Pressure 132/82 05/19/2008 12:07 PM ANALYTICS ANALYST Pulse 68 05/19/2008 12:07 PM ANALYTICS ANALYST Temperature - - Respiratory Rate - - Oxygen Saturation - - Inhaled Oxygen Concentration - - Weight 145.2 kg (320 lb) 05/19/2008 12:07 PM ANALYTICS ANALYST Height 182.9 cm (6') 05/19/2008 12:07 PM ANALYTICS ANALYST Body Mass Index 43.4 05/19/2008 12:07 PM ANALYTICS ANALYST Plan of Treatment Health Maintenance Due Date Last Done Comments DTAP/TDAP/TD VACCINES (1 - Tdap) 06/24/1967 PNEUMOCOCCAL VACCINE 50+ YEARS (1 of 1 - PCV) 06/23/18 99 ZOSTER VACCINE (1 of 2) 1998 RSV VACCINE (60+ or ) (1 - 1-dose 75+ series) 06/24/2023 INFLUENZA VACCINE (#1) 2024 Insurance [facility] BLUE ACCESS/TRUE BLUE PPO Care Teams Reporter Anchor Relationship Specialty Start Date End Date Keith Love MD PCP - General 09/17/07
--- OUTSIDE RECORDS SUMMARY | 2024-10-20 00:39 | XMS_ITS | Encounter Summary ---
Author Organization [facility] Address [address] [place] [address] Care Team Providers Care Chemist Internship Name Role Phone Keith Love MD Primary Care Provider + Encounter Details Date Type Department Care Team (Late st Contact Info) Description 09/29/2006 Outpatient Historical [facility] Endocrinology & Diabetes Management [address] [place] [address] Kimberlyn Estrada MD [address] [place] [address] Social History Tobacco Use Types Packs/Day Years Used Date Smoking Tobacco: Never Assessed Sex and Gender Information Value Date Recorded Sex Assigned at Not on file Legal Sex Male 2:49 AM MANAGER CARGO Gender Identity Not on file Sexual Orientation Not on file documented as of this encounter Plan of Treatment Not on file documented as of this encounter Visit Diagnoses Not on filedocumented in this encounter Care Teams Chemist Internship Relationship Specialty Start Date End Date Keith Love MD PCP - General 09/17/07 documented as of this encounter
--- OUTSIDE RECORDS SUMMARY | 2024-10-20 00:39 | XMS_ITS | Continuity of Care Document ---
Author Organization [facility] Address [address] [place] [address] Phone Care Team Providers Care Convention Services Manager Name Role Phone Marcelo Dawn MD Unavailable Unavailable Procedures Procedure Date Work/medical disability examination [facility] Advance Directives Directive Yes / No Effective Date File Name No Information Encounters Encounter Description Practice Location Reason(s) For Visit Diagnoses Date Provider Providers Copied on Encounter Work/medical disability examination [facility], [address], [id number], tel:[phone] [facility] JOINT PAIN-FOREAR M Nereyda Robertson. [address] [place] [address], [place], [place], [id number], . tel:[phone] Family History Family Member Type Diagnosis Age At Onset No Information Payers Payer name Insurance type Covered alliance party ID Authoriza tion(s) No Information Social History [...]
--- OUTSIDE RECORDS SUMMARY | 2024-10-20 00:39 | XMS_ITS | Clinical Summary ---
Author Organization [facility] Address [address] [place] [address] Care Team Providers Care Files Supervisor Name Role Phone Keith Love MD Primary Care Provider [phone] Family History Medical History Relation Comments CEREBROVASCULAR ACCIDENT Father CAD Mother [place] Mother Stroke Mother Relation Status Comments Father [...] Health Maintenance Due Date Last Done Comments Hepatitis C 1966 DTaP, Tdap and Td Vaccines ( 1 - Tdap) 06/24/1967 Pneumococcal Vaccine: 50+ Ye ars (1 of 1 - PCV) 1998 Zoster Vaccines (1 of 2) 1998 RSV Immunization or 60+ Years (1 - 1-dose 75+ series) 06/24/2023 COVID-19 Vaccine ( - 2023-2 5 season) 2023 Meningococcal B Vaccine Aged Out No l onger eligible based on patient's age to complete this topic Meningococcal Vaccine Aged Out No evonne ijeoma eligible based on patient's age to complete this topic RSV Immunizations Under 20 Months Aged Out No longer eligible based on patient's age to complete this topic Care Teams Files Supervisor Relationship Specialty Start Date End Date Keith Love MD PCP - General 01/09/16
--- OUTSIDE RECORDS SUMMARY | 2024-10-20 00:39 | XMS_ITS | Encounter Summary ---
Author Organization [facility] Address [address] [place] [address] Care Team Providers Care Spar Cap Beveler Name Role Phone Keith Love MD Primary Care Provider + Encounter Details Date Type Department Care Team (Late st Contact Info) Description 06/19/2006 Outpatient Historical [facility] Endocrinology & Diabetes Management [address] [place] [address] Kimberlyn Estrada MD [address] [place] [address] Social History Tobacco Use Types Packs/Day Years Used Date Smoking Tobacco: Never Assessed Sex and Gender Information Value Date Recorded Sex Assigned at Not on file Legal Sex Male 2:49 AM MOUNTAIN OR GLACIER GUIDE Gender Identity Not on file Sexual Orientation Not on file documented as of this encounter Plan of Treatment Not on file documented as of this encounter Visit Diagnoses Not on filedocumented in this encounter Care Teams Spar Cap Beveler Relationship Specialty Start Date End Date Keith Love MD PCP - General 09/17/07 documented as of this encounter
--- OUTSIDE RECORDS SUMMARY | 2024-10-20 00:39 | XMS_ITS | Encounter Summary ---
Author Organization [facility] Address [address] [place] [address] Care Team Providers Care Insulation Batting Machine Operator Name Role Phone Keith Love MD Primary Care Provider + Encounter Details Date Type Department Care Team (Late st Contact Info) Description 03/26/2007 Outpatient Historical [facility] Endocrinology & Diabetes Management 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
--- OUTSIDE RECORDS SUMMARY | 2024-10-20 00:39 | XMS_ITS | Encounter Summary ---
Author Organization [facility] Address [address] [place] [address] Care Team Providers Care Occupational Health Specialist Name Role Phone Dalton Schumacher MD Unavailable [phone] Orestes Hagen MD Primary Care Provider [phone] Encounter Details Date Type Department Care Team (Late st Contact Info) Description 10/11/2024 Results Follow-Up 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 Will try again later. documented in this encounter Plan of Treatment Not on file documented as of this encounter Visit Diagnoses Not on filedocumented in this encounter Care Teams Occupational Health Specialist Relationship Specialty Start Date End Date Orestes Hagen MD [address] [place] [address] PCP - General Family Practice 10/02/22 Dalton Schumacher MD [address] [place] [address] Consulting Physician Cardiovascular Disease 10/22/21 documented as of this encounter
--- OUTSIDE RECORDS SUMMARY | 2024-10-20 00:39 | XMS_ITS | Encounter Summary ---
Author Organization [facility] Address [address] [place] [address] Care Team Providers Care Boat Mechanic Name Role Phone Keith Love MD Primary Care Provider + Encounter Details Date Type Department Care Team (Late st Contact Info) Description 03/25/2007 Outpatient Historical [facility] Endocrinology & Diabetes Management [address] [place] [address] Kimberlyn Estrada MD [address] [place] [address] Social History Tobacco Use Types Packs/Day Years Used Date Smoking Tobacco: Never Assessed Sex and Gender Information Value Date Recorded Sex Assigned at Not on file Legal Sex Male 2:49 AM BAILER OPERATORS SUPERVISOR Gender Identity Not on file Sexual Orientation Not on file documented as of this encounter Plan of Treatment Not on file documented as of this encounter Visit Diagnoses Not on filedocumented in this encounter Care Teams Boat Mechanic Relationship Specialty Start Date End Date Keith Love MD PCP - General 09/17/07 documented as of this encounter
[2024-10-20 09:44] VITALS: BP 162/69; PULSE 46; RESP 20; TEMP 36.1; O2SAT 96
[2024-10-20 09:45] VITALS: BMI 44.1
[2024-10-20] MEDS: LACTATED RINGERS 1,000 ML 150 ML IV CONT (10:01)
--- NOTE | 2024-10-20 10:04 | P.PNAN_ITS ---
Anes - Initial Pre Proc Eval Procedure: Operation Date: 10/20/24 10:30 Proposed Procedures p Screening Colonoscopy - Jaren Fernandez MD Date/Time: 10/20/24 10:04 Surgeon: Jaren Fernandez MD Pre Op Diagnosis: Screening Patient Data Age: 74 Gender: M Height: 1.8 m Weight: 143.7 kg Last Vital Signs Temp 97 F L 10/20/24 09:44 Pulse 46 L 10/20/24 09:44 Resp 20 10/20/24 09:44 BP 162/69 H 10/20/24 09:44 Pulse Ox 96 10/20/24 09:44 O2 Del Method Room Air 10/20/24 09:44 Allergies Allergy/AdvReac Type Severity Reaction Status Date / Time naproxen Allergy Unknown Gastrointestinal Verified 10/20/24 09:39 Upset NSAIDS (Non-Steroidal Allergy Unknown Gastric Verified 10/20/24 09:39 Anti-Inflamma bleed Home Medications ?Medication ?Instructions ?Recorded ?Confirmed ?Type hydrocodone 7.5 mg-acetaminophen 1 tablet PO TID PRN Pain 04/21/19 10/20/24 History 325 mg tablet apixaban 5 mg tablet (Eliquis) 5 mg PO BID 01/27/20 10/20/24 History finasteride 5 mg tablet 5 mg PO DAILY 08/21/22 10/20/24 History multivitamin 1 tablet PO DAILY 09/26/23 10/20/24 History furosemide 40 mg tablet See Rx Instructions .Route 10/06/23 10/20/24 Rx .COMPLEX #30 tabs loperamide 2 mg capsule 2 mg PO PRN PRN Diarrhea #30 caps 11/11/23 10/08/24 Rx spironolactone 25 mg tablet 12.5 mg (1/2 x 25 mg) PO DAILY #30 11/11/23 10/20/24 Rx tabs potassium chloride 20 mEq 20 meq PO DAILY #30 tabs 12/03/23 10/20/24 Rx tablet,extended release alprazolam 0.25 mg tablet (Xanax) 0.25 mg PO DAILY #3 tabs 01/07/24 10/08/24 Rx metformin 500 mg tablet 500 mg PO DAILY #90 tabs 04/02/24 10/20/24 Rx ferrous sulfate 325 mg (65 mg See Rx Instructions .Route 02/20/25 07/18/25 Rx iron) tablet (FeroSul) .COMPLEX #100 tabs cephalexin 250 mg PO DAILY 06/28/24 10/20/24 History semaglutide 0.25 mg or 0.5 mg (2 0.25 mg (0.368 mL) subcut WEEKLY 07/14/24 10/08/24 Rx mg/3 mL) subcutaneous pen injector #3 mL (Ozempic) buspirone 10 mg tablet See Rx Instructions .Route 09/13/24 10/20/24 Rx .COMPLEX #270 tabs trazodone 50 mg tablet See Rx Instructions .Route 09/20/24 10/20/24 Rx .COMPLEX #270 tabs escitalopram oxalate 20 mg tablet See Rx Instructions .Route 10/01/24 10/20/24 Rx .COMPLEX #90 tabs pregabalin 75 mg capsule (Lyrica) 75 mg PO BID PRN neuropathy #60 10/07/24 10/20/24 Rx caps Patient hx anesthesia problems: none Family hx anesthesia problems: none Results Review: All pre-operative results and documents have been reviewed as part of the pre- operative evaluation. [facility] Past Medical History Medical History Blocked ear Bilateral impacted cerumen Prediabetes History of GI bleed Secondary to gastric bypass and NSAID use AMINA (obstructive sleep apnea) PAD (peripheral artery disease) Neuropathy Depression Hypogonadism in male Atrial fibrillation Cholecystectomy planned Anemia, unspecified Anxiety Benign prostatic hyperplasia with lower urinary tract symptoms Essential (primary) hypertension Bilateral inguinal hernia, without obstruction or gangrene, not specified as recurrent Mixed hyperlipidemia Morbid obesity Primary insomnia Surgical History Surgical History History of bilateral carpal tunnel release History of arthroscopy of both knees History of cholecystectomy H/O hernia repair Hx of gastric bypass Family History Family History Father Cerebrovascular accident Hypertension Sibling Family history of diabetes mellitus in first degree relative Aortic aneurysm PVD (peripheral vascular disease) Mother Acute myocardial infarction Family history of coronary artery disease Cerebrovascular accident Diabetes mellitus Family history of malignant neoplasm Hypertension Social History Social History (Updated 06/28/24 @ 08:28 by Heike Barba) Social History: 01/29/22 - Reports never smoker. Occasional iced slushee cocktail but hasn't had alcohol in 2 to 3 months he states. Denies marijuana or illicit substance use. Caffeine-tea Smoking status: Never smoker Second hand tobacco smoke exposure: Yes Alcohol intake: current Substance use: never Substance use type: does not use Do You Feel Safe in your Home?: Yes Lack of Transportation: No Lack of Food: Never True Current Housing: I Have Housing Concerned About Future Housing: No Difficulty Paying Gas/Electric Bills: No Difficulty Paying for Meds: No Currently Unemployed: No Education: High School Diploma/GED Difficulty w/ Childcare or Family Care: No Living arrangements: with family Gender identity (if verbalized by the patient): Male Spiritual care concerns: No Anes - Eval Final PreProcedure Day of Procedure 10/20/24 10:04 Patient weight: morbidly obese Heart: regular rate and rhythm Lungs: clear to auscultation Airway: Mallampati scale class III Neurological: alert and oriented Last oral intake: >/= 8 hours ASA classification: III Emergent: no Anesthetic plan: proceed Anesthesia type and monitoring: general GIVS and standard monitoring Results Review: All pre-operative results and documents have been reviewed as part of the pre- operative evaluation. Informed Consent: The patient's anesthetic plan and its attendant risks and benefits were discussed with the patient/family/POA. Questions were solicited and answers provided to the satisfaction of the patient/family/POA.
--- NOTE | 2024-10-20 11:02 | PM.HPGS ---
History of Present Illness History of Present Illness Consent: Risks, benefits, and alternatives have been discussed and questions answered. Patient agrees to proceed with procedure. Chief complaint: Screening Narrative: Armando Diaz is a 74 year old male with colon polyp 5 years ago Review of Systems Review of Systems: All systems reviewed & are unremarkable except as noted in HPI and below PMFSH Past Medical History Medical History (Updated 10/20/24 @ 11:03 by Jaren Fernandez MD) Colon polyp Blocked ear Bilateral impacted cerumen Prediabetes History of GI bleed Secondary to gastric bypass and NSAID use AMINA (obstructive sleep apnea) PAD (peripheral artery disease) Neuropathy Depression Hypogonadism in male Atrial fibrillation Cholecystectomy planned Anemia, unspecified Anxiety Benign prostatic hyperplasia with lower urinary tract symptoms Essential (primary) hypertension Bilateral inguinal hernia, without obstruction or gangrene, not specified as recurrent Mixed hyperlipidemia Morbid obesity Primary insomnia Surgical History Surgical History History of bilateral carpal tunnel release History of arthroscopy of both knees History of cholecystectomy H/O hernia repair Hx of gastric bypass Family History Family History Father Cerebrovascular accident Hypertension Sibling Family history of diabetes mellitus in first degree relative Aortic aneurysm PVD (peripheral vascular disease) Mother Acute myocardial infarction Family history of coronary artery disease Cerebrovascular accident Diabetes mellitus Family history of malignant neoplasm Hypertension Social History Social History (Updated 06/28/24 @ 08:28 by Heike Barba) Social History: 01/29/22 - Reports never smoker. Occasional iced slushee cocktail but hasn't had alcohol in 2 to 3 months he states. Denies marijuana or illicit substance use. Caffeine-tea Smoking status: Never smoker Second hand tobacco smoke exposure: Yes Alcohol intake: current Substance use: never Substance use type: does not use Do You Feel Safe in your Home?: Yes Lack of Transportation: No Lack of Food: Never True Current Housing: I Have Housing Concerned About Future Housing: No Difficulty Paying Gas/Electric Bills: No Difficulty Paying for Meds: No Currently Unemployed: No Education: High School Diploma/GED Difficulty w/ Childcare or Family Care: No Living arrangements: with family Gender identity (if verbalized by the patient): Male Spiritual care concerns: No Meds Home Medications and Allergies Home Medications ?Medication ?Instructions ?Recorded ?Confirmed ?Type hydrocodone 7.5 mg-acetaminophen 1 tablet PO TID PRN Pain 04/21/19 10/20/24 History 325 mg tablet apixaban 5 mg tablet (Eliquis) 5 mg PO BID 01/27/20 10/20/24 History finasteride 5 mg tablet 5 mg PO DAILY 08/21/22 10/20/24 History multivitamin 1 tablet PO DAILY 09/26/23 10/20/24 History furosemide 40 mg tablet See Rx Instructions .Route 10/06/23 10/20/24 Rx .COMPLEX #30 tabs loperamide 2 mg capsule 2 mg PO PRN PRN Diarrhea #30 caps 11/11/23 10/08/24 Rx spironolactone 25 mg tablet 12.5 mg (1/2 x 25 mg) PO DAILY #30 11/11/23 10/20/24 Rx tabs potassium chloride 20 mEq 20 meq PO DAILY #30 tabs 12/03/23 10/20/24 Rx tablet,extended release alprazolam 0.25 mg tablet (Xanax) 0.25 mg PO DAILY #3 tabs 01/07/24 10/08/24 Rx metformin 500 mg tablet 500 mg PO DAILY #90 tabs 04/02/24 10/20/24 Rx ferrous sulfate 325 mg (65 mg See Rx Instructions .Route 05/13/24 10/08/24 Rx iron) tablet (FeroSul) .COMPLEX #100 tabs cephalexin 250 mg PO DAILY 06/28/24 10/20/24 History semaglutide 0.25 mg or 0.5 mg (2 0.25 mg (0.368 mL) subcut WEEKLY 07/14/24 10/08/24 Rx mg/3 mL) subcutaneous pen injector #3 mL (Ozempic) buspirone 10 mg tablet See Rx Instructions .Route 09/13/24 10/20/24 Rx .COMPLEX #270 tabs trazodone 50 mg tablet See Rx Instructions .Route 09/20/24 10/20/24 Rx .COMPLEX #270 tabs escitalopram oxalate 20 mg tablet See Rx Instructions .Route 10/01/24 10/20/24 Rx .COMPLEX #90 tabs pregabalin 75 mg capsule (Lyrica) 75 mg PO BID PRN neuropathy #60 10/07/24 10/20/24 Rx caps Allergies Allergy/AdvReac Type Severity Reaction Status Date / Time naproxen Allergy Unknown Gastrointestinal Verified 10/20/24 09:39 Upset NSAIDS (Non-Steroidal Allergy Unknown Gastric Verified 10/20/24 09:39 Anti-Inflamma bleed Vital Signs Vital Signs - 24 hr 10/20/24 09:44 Temperature 97 F L Pulse Rate 46 L Respiratory Rate 20 Blood Pressure 162/69 H Pulse Oximetry 96 Oxygen Delivery Room Air Exam Const: General: comfortable and no acute distress HENMT: Face/Nose/Sinus: Normal nares present Eyes: General: appearance normal, both eyes and all related structures Neck: Neck: no JVD Resp: Auscultation: clear to auscultation bilaterally Cardio: Rate: regular rate Rhythm: regular rhythm GI: Inspection: non-distended GI Palp: Yes Soft to palpation Skin: General skin exam: normal color Neuro: Speech: normal speech Extrem: General: normal to inspection Psych: Mental Status: mental status grossly normal Assessment and Plan Assessment and plan (1) Colon polyp: Code(s): K63.5 - Polyp of colon Status: Acute Assessment and Plan: colonoscopy
--- NOTE | 2024-10-20 11:18 | S_PTH ---
PATIENT: Armando Diaz LOC: [facility]#:[id number] AGE/SX: 74/M ROOM: RE10/20/[address]: Jaren Fernandez MD : 1950 BED: DIS: 10/20/2024 SPEC #: [id number] RECD: 10/20/24 13:25 STATUS: JUDIT REBridgett #: [id number] ALONDRA: 10/20/24 11:[address]: Jaren Fernandez DEPT: [facility] Surgical RECD BY: Mariella Peng ENTERED: 10/20/24 13:27 SP TYPE: Surgical OTHR DR: Orestes Hagen MD Tissues: A - Colon Polypectomy Procedures: Hematoxylin and Eosin Stain Gross and Microscopic Level 4
[2024-10-20 11:23] VITALS: BP 92/64; PULSE 52; RESP 20; O2SAT 95
[2024-10-20 11:33] VITALS: BP 116/61; PULSE 52; RESP 20; O2SAT 95
[2024-10-20 11:43] VITALS: BP 123/64; PULSE 53; RESP 20; O2SAT 96
== END 2024-10-20 11:59 | disposition home or self-care (01) ==
PROVIDERS: PCP Family Medicine; Referring Provider Family Medicine; Visit Provider Internal Medicine Gastroenterology
PROC: 0DJD8ZZ Inspection of Lower Intestinal Tract, Via Natural or Artificial Opening Endoscopic (ICD-10-PCS; CPT 45378; principal; 2024-10-20 10:30)
DX: Z12.11 Encounter for screening for malignant neoplasm of colon (principal); D12.2 Benign neoplasm of ascending colon; K63.5 Polyp of colon; K57.30 Diverticulosis of large intestine without perforation or abscess without bleeding; I10 Essential (primary) hypertension; R73.03 Prediabetes; E29.1 Testicular hypofunction; D64.9 Anemia, unspecified; N40.1 Benign prostatic hyperplasia with lower urinary tract symptoms; G47.33 Obstructive sleep apnea (adult) (pediatric); F32.A Depression, unspecified; F41.9 Anxiety disorder, unspecified; F51.01 Primary insomnia; I73.9 Peripheral vascular disease, unspecified; G62.9 Polyneuropathy, unspecified; I48.91 Unspecified atrial fibrillation; E66.01 Morbid (severe) obesity due to excess calories; Z68.41 Body mass index [BMI] 40.0-44.9, adult; Z79.891 Long term (current) use of opiate analgesic; Z79.01 Long term (current) use of anticoagulants; Z79.84 Long term (current) use of oral hypoglycemic drugs; Z79.85 Long-term (current) use of injectable non-insulin antidiabetic drugs; Z98.890 Other specified postprocedural states; Z90.49 Acquired absence of other specified parts of digestive tract; Z98.84 Bariatric surgery status; Z87.19 Personal history of other diseases of the digestive system; Z80.9 Family history of malignant neoplasm, unspecified; Z82.49 Family history of ischemic heart disease and other diseases of the circulatory system
CPT/HCPCS: 45385; 82948; 88305; J2003; J2704; J7120